=== PATIENT | female | born 1995 | race Caucasian/White ===

== ENCOUNTER → 2017-06-18 | Outpatient (CLI) | payer OTHER ==
[~2017-06-18] MED LIST: AZIT500T2 PO; CEFT250I IM; CEPH-460 PO; DOXY10TA PO; MULTCHW12 PO
== END ==
LOC: HPND 09:49
PROVIDERS: ATTEND Family Medicine
DX: O26.842 Uterine size-date discrepancy, second trimester (principal); Z3A.16 16 weeks gestation of pregnancy
CPT/HCPCS: 76805

== ENCOUNTER → 2017-07-16 | Outpatient (CLI) | payer MEDICAID ==
[~2017-07-16] MED LIST changes: -CEPH-460 PO
== END ==
LOC: HPND 09:31
PROVIDERS: ATTEND Family Medicine
DX: O26.842 Uterine size-date discrepancy, second trimester (principal)
CPT/HCPCS: 76816

== ENCOUNTER 2017-07-20 17:41 | Emergency (ER) | payer MEDICAID ==
[~2017-07-20] VITALS: Ht 162.6 cm; Wt 58.4 kg
[~2017-07-20 17:41] MED LIST changes: -AZIT500T2 PO; -DOXY10TA PO
[2017-07-20 17:42] VITALS: BP 102/63; PULSE 72; RESP 20; TEMP 97.3; O2SAT 98
[2017-07-20 19:03] VITALS: BP 115/64; PULSE 90; RESP 17; O2SAT 100
[2017-07-20] MEDS: LACTATED RINGER'S 1000 ML INJ 1,000 ML IV SCH ×2 (20:06→21:07)
[2017-07-20] MEDS ORDERED: ONDANSETRON HCL 4 MG/2 ML VIAL IV ONE (20:15)
--- NOTE | 2017-07-20 20:48 | PD ---
HPI Chief Complaint AMS Date Seen: Jul 20, 2017 Travel History International Travel<30 Days: No Contact w/Intl Traveler<30Days: No Known Affected Area: No History of Present Illness HPI Patient is a 21-year-old at 21/0 weeks gestation based on ultrasound performed on 07/16/17 with COLE of 11/30/17 that presented to the [facility] with a chief complaint of abdominal pain. Patient was acutely altered when she presented and was unable to answer most questions. She could not mention her last name and was not oriented to person, place, or time. We were only able to deduce from her that she had diffuse abdominal pain and a splitting headache. Patient's boyfriend and grandmother mentioned that she started feeling unwell on Thursday 07/19 but went to work on Saturday and was sent home. She vomited multiple times at home and was vomiting in the OB ED at the time of exam. Notably, she is a patient of Dr. Colt Hdez at the [facility]. Her last OB clinic visit was on 05/31/17. She was recently treated for STIs. History Past Medical History Medical History: Unable to Obtain Past Surgical History Surgical History: Unable to Obtain Family History Narrative Family History Mom has a history of Grave's disease Social History Narrative Social History Patient unable to provide social history. However, grandparents who later came to bedside stated that she has a history of drug abuse. She currently lives with a roommate and has a boyfriend who is her unborn child's father that stays with her from time to time. The boyfriend brought her to the ED but stepped out for a short amount of time. When he returned, he denied any substance use during the . Patient works at [employer] destination [employer]. Allergies-Medications (Allergen,Severity, Reaction): Coded Allergies: latex (Unverified Allergy, Severe, Anaphylaxis, 07/20/17) codeine (Unverified Adverse Reaction, Severe, Nausea/Vomiting, 07/20/17) Home Meds Reported Medications Multiple Vitamins W/ Minerals (Multi-Vitamin Gummies) Gummies Chw, 1 CHEW PO DAILY, CHW 12/28/13 Review of Systems ROS Limitations: Altered Mental Status HENT: Headaches Gastrointestinal: Nausea, Vomiting, Abdominal Pain Physical Exam Vital Signs Date Time Temp Pulse Resp B/P (MAP) Pulse Ox O2 Delivery O2 Flow Rate FiO2 07/20/17 19:03 90 17 115/64 (81) 100 Room Air 07/20/17 17:42 97.3 72 20 102/63 (76) 98 Room Air Narrative GENERAL: Well-nourished, well-developed patient. SKIN: Warm and dry. HEAD: Normocephalic and atraumatic. EYES: No scleral icterus. No injection or drainage. ENT: No nasal drainage noted. Mucous membranes pink. Airway patent. NECK: Supple, trachea midline. No JVD. CARDIOVASCULAR: Bradycardic rate and rhythm without murmurs, gallops, or rubs. RESPIRATORY: Breath sounds equal bilaterally. No accessory muscle use. BREASTS: Bilateral exam showed no masses, no retractions, no nipple discharge. ABDOMEN/GI: Abdomen soft, non-tender, bowel sounds present, no rebound, no guarding Gravid to 21 weeks size FHT's: 140s by Doppler EXTREMITIES: No cyanosis or edema. BACK: Nontender without obvious deformity. No CVA tenderness. NEUROLOGICAL: Awake, disoriented. Motor and sensory grossly within normal limits. Five out of 5 muscle strength in all muscle groups. Normal speech. Data Data Vital Signs Reviewed: Yes Orders Orders Vital Signs (Adult) .ON ADMISSION (07/20/17 20:06) ^ Labor Status (07/20/17 20:06) Urinalysis - C+S If Indicated (07/20/17 20:06) Cbc No Diff, Includes Plts (07/20/17 20:06) Comprehensive Metabolic Panel (07/20/17 20:06) Lactated Ringer's 1000 Ml Inj (Lr 1000 M (07/20/17 20:06) Ondansetron Inj (Zofran Inj) (07/20/17 20:15) Ob/Psych Drug Screen, Urine (07/20/17 20:06) Amylase (07/20/17 20:06) Lipase (07/20/17 20:06) Bedside Glucose ONEIDA.CSUGAR (07/20/17 20:42) Electrocardiogram (07/20/17 ) Labs Laboratory Tests Test 07/20/17 20:00 [facility] Medical Record Reviewed: Yes Interpretation(s) 21-year-old at 21/0 weeks gestation presents in acute altered mental status. Differential diagnoses includes acute encephalopathy, drug overdose, intoxication, acute infection, etc. Plan -Speculum exam was performed by OB hospitalist Dr. Marte which was normal and SVE revealed a closed, thick, and high posterior cervix -CBC, CMP, amylase/lipase, RPR, UA and UDS were ordered Results -UA was negative for infection -UDS was positive for marijuana which may explain the vomiting -CMP revealed potassium of 2.7 -Due to her diminished potassium, an EKG was performed stat and revealed normal sinus rhythm with rate of 70, no ST changes suggestive of ACS After administration of IV Zofran, the patient stopped vomiting and was transferred to the [facility] ED for evaluation of headache She was administered 80 meq of potassium chloride IV and serial potassium levels were 3.6 and 3.9 respectively. The ED physician administered a cocktail for headache which resolved her symptoms. With resolution of the vomiting and headache, she was considered stable enough to be discharged home. Diagnosis Diagnosis: Primary Impression: Altered mental status Additional Impressions: Vomiting Head ache Condition: Stable Eko,Lorena Burger MD R2 Jul 20, 2017 20:48
[2017-07-20 20:49] LABS: HEMATOCRIT 34.9 % (35.0-46.0); MEAN CELL VOLUME 90.4 FL (80.0-100.0); MEAN CORPUSCULAR HEMOGLOBIN 31.3 PG (27.0-34.0); MEAN CORPUSCULAR HGB CONC 34.6 % (32.0-36.0); PLATELET COUNT 249 TH/MM3 (150-450); RED BLOOD COUNT 3.85 MIL/MM3 (4.00-5.30); RED CELL DISTRIBUTION WIDTH 12.9 % (11.6-17.2); REVIEW FLAG FINAL; WHITE BLOOD COUNT 15.3 TH/MM3 (4.0-11.0)
[2017-07-20 20:57] LABS: BLOOD, URINE NEG (NEG); COMMENT (UR) CULT NOT INDICATED; CULTURE IF INDICATED CULT NOT INDICATED; GLUCOSE,URINE NEG (NEG); KETONE, URINE 40 mg/dL (NEG); MUCUS URINE FEW /lpf (OCC); NITRITE,URINE NEG (NEG); PH, URINE 7.5 (5.0-8.5); URINE COLOR LIGHT-YELLOW (YELLW/STRAW)
--- NOTE | 2017-07-20 21:03 | PD ---
History of Present Illness History of Present Illness OB Hg attending The patient was reporting abdominal pain and was writhing around in the bed. She was refusing to answer any questions. While awaiting the arrival of the resident team her previous ultrasound from 07/16/17 was reviewed with cervical length of 4.9 cm and COLE 11/30/17 consistent with 21 weeks and 0 days today. A speculum exam was performed with the patient's permission and revealed cervix that appeared to be visually closed, grossly normal rugae, physiologic discharge , and no cervical or vaginal masses. SVE was performed with cervix closed/thick /high and posterior anterior/firm. Basic lab work ordered with a CBC CMP amylase/lipase, UA, UDS. Yaneth Marte MD Jul 20, 2017 21:03
[2017-07-20 21:18] LABS: ALKALINE PHOSPHATASE 60 U/L (45-117); ALT (GPT) 29 U/L (10-53); AMYLASE 37 U/L (25-115); ANION GAP 14 MEQ/L (5-15); AST (GOT) 18 U/L (15-37); BICARBONATE 17.9 MEQ/L (21.0-32.0); BLOOD UREA NITROGEN 6 MG/DL (7-18); CHLORIDE 103 MEQ/L (98-107); GLOMERULAR FILTRATION RATE 147 ML/MIN (>89); SODIUM (NA) 135 MEQ/L (136-145); TOTAL BILIRUBIN ADULT 0.2 MG/DL (0.2-1.0)
[2017-07-20 21:21] LABS: POTASSIUM 2.7 MEQ/L (3.5-5.1)
[2017-07-20] MEDS ORDERED: POTASSIUM CHLOR 20 MEQ PREMIX 100 ML IV PRN (21:30)
[2017-07-20] MEDS ORDERED: SODIUM CHLOR 0.9% 1000 ML INJ 1,000 ML IV ONE (22:07)
[2017-07-20] MEDS ORDERED: PROCHLORPERAZINE INJ 10 MG/2 ML VIAL IVP ONE (22:15)
[2017-07-20] MEDS ORDERED: diphenhydrAMINE HCL 50 MG/ML VIAL IVP ONE (22:15)
[2017-07-20] MEDS ORDERED: KETOROLAC TROMETHAMINE 30 MG/ML (IVP) VIAL IVP ONE (22:15)
[2017-07-20] MEDS ORDERED: MORPHINE SULFATE 4 MG/ML INJ IV PUSH ONE (22:15)
[2017-07-20] MEDS ORDERED: SODIUM CHLORIDE 0.9% FLUSH 10 ML FLUSH IVF PRN (22:15)
--- NOTE | 2017-07-20 22:17 | PD ---
HPI Chief Complaint: JOSEPH Related Problem Time Seen by Provider: 18:56 Travel History International Travel<30 days: No Contact w/Intl Traveler<30days: No Traveled to known affect area: No History of Present Illness HPI The patient is a 21-year-old female who is approximately 21 weeks and presents to the hospital for headache, nausea, vomiting, and abdominal pain. The patient was seen in the OB ED by the on-call ride attendant where she underwent examination, heart rate was within normal limits and there is no evidence of bleeding. The patient was administered IV fluids and Zofran which did resolve the nausea. The patient was then brought back to the emergency department for her headache. 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 The headache is still located on the left aspect of her head, throbbing, nonradiating, and she contributes the headache to dehydration. She denies any history of migraines, subarachnoid hemorrhage, or trauma to left aspect of the head. The patient denies any acute posterior neck pain. She denies any focal deficits of the upper or lower extremity is. She denies any fever, chills, or sweats. [facility] Past Medical History Medical History: Denies Significant Hx ?: Past Surgical History Surgical History: No Previous Surgery Social History Alcohol Use: No Tobacco Use: No Substance Use: No Allergies-Medications (Allergen,Severity, Reaction): Coded Allergies: latex (Unverified Allergy, Severe, Anaphylaxis, 07/20/17) codeine (Unverified Adverse Reaction, Severe, Nausea/Vomiting, 07/20/17) Reported Meds & Prescriptions Reported Meds & Active Scripts Active Reported Multi-Vitamin Gummies (Amino Acids/Minerals/Vitamins) Gummies Chw 1 Chew PO DAILY Review of Systems Except as stated in HPI: all other systems reviewed are Neg General / Constitutional: No: Fever, Chills Eyes: Positive: Photophobia, Visual changes HENT: Positive: Headaches, Lightheadedness, No: Neck Pain Cardiovascular: No: Chest Pain or Discomfort Respiratory: No: Shortness of Breath Gastrointestinal: Positive: Nausea, Vomiting, Abdominal Pain Genitourinary: No: Vaginal Bleeding Neurologic: Positive: Dizziness, Headache, No: Change in Mentation, Paresthesia , Sensory Disturbance Physical Exam Narrative GENERAL: Awake, alert, pleasant 21-year-old female who appears her stated age and is in no acute respiratory distress. SKIN: Focused skin assessment warm/dry. HEAD: Atraumatic. Normocephalic. EYES: Pupils equal and round. Pupils are 3 mm bilateral and reactive. EOMs are intact. The patient does not note any pain upon extraocular movement. She is able to see fingers at a distance of 2 feet without difficulty. ENT: No nasal bleeding or discharge. Mucous membranes pink and moist. TMs are translucent and EACs are clear. NECK: Trachea midline. No JVD. No meningeal signs noted. CARDIOVASCULAR: Regular rate and rhythm. No murmur appreciated. RESPIRATORY: No accessory muscle use. Clear to auscultation. Breath sounds equal bilaterally. GASTROINTESTINAL: Abdomen soft, gravid, no rebound tenderness. MUSCULOSKELETAL: No obvious deformities. No clubbing. No cyanosis. No edema. NEUROLOGICAL: Awake and alert. No obvious cranial nerve deficits. Motor grossly within normal limits. Normal speech. PSYCHIATRIC: Appropriate mood and affect; insight and judgment normal. Data Data Last Documented VS Vital Signs Date Time Temp Pulse Resp B/P (MAP) Pulse Ox O2 Delivery O2 Flow Rate FiO2 07/20/17 23:30 96 Room Air 07/20/17 19:03 90 17 07/20/17 17:42 97.3 Orders Orders Vital Signs (Adult) .ON ADMISSION (07/20/17 20:06) ^ Labor Status (07/20/17 20:06) Urinalysis - C+S If Indicated (07/20/17 20:06) Cbc No Diff, Includes Plts (07/20/17 20:06) Comprehensive Metabolic Panel (07/20/17 20:06) Lactated Ringer's 1000 Ml Inj (Lr 1000 M (07/20/17 20:06) Ondansetron Inj (Zofran Inj) (07/20/17 20:15) Ob/Psych Drug Screen, Urine (07/20/17 20:06) Amylase (07/20/17 20:06) Lipase (07/20/17 20:06) Bedside Glucose ONEIDA.CSUGAR (07/20/17 20:42) Electrocardiogram (07/20/17 ) Ur Bath Salts (07/20/17 20:00) Ur Heroin (07/20/17 20:00) Ur K2 Spice (07/20/17 20:00) Ur Ecstasy (07/20/17 20:00) Phencyclidine Urine (Pcp) (07/20/17 20:00) Potassium Chlor 20 Meq Premix (Kcl 20 Me (07/20/17 21:30) Rapid Plasmin Reagin Screen (07/20/17 21:34) Ecg Monitoring (07/20/17 22:07) Iv Access Insert/Monitor (07/20/17 22:07) Oximetry (07/20/17 22:07) Sodium Chloride 0.9% Flush (Ns Flush) (07/20/17 22:15) Ketorolac Inj (Toradol Inj) (07/20/17 22:15) Prochlorperazine Inj (Compazine Inj) (07/20/17 22:15) Diphenhydramine Inj (Benadryl Inj) (07/20/17 22:15) Sodium Chlor 0.9% 1000 Ml Inj (Ns 1000 M (07/20/17 22:07) Morphine Inj (Morphine Inj) (07/20/17 22:15) Potassium Chloride Inj (Kcl Inj) (07/20/17 23:00) Potassium, Serum (K) (07/21/17 01:00) Potassium, Serum (K) (07/21/17 03:00) Potassium, Serum (K) (07/21/17 05:00) Labs Laboratory Tests Test 07/20/17 20:00 White Blood Count 15.3 TH/MM3 Red Blood Count 3.85 MIL/MM3 Hemoglobin 12.1 GM/DL Hematocrit 34.9 % Mean Corpuscular Volume 90.4 FL Mean Corpuscular Hemoglobin 31.3 PG Mean Corpuscular Hemoglobin Concent 34.6 % Red Cell Distribution Width 12.9 % Platelet Count 249 TH/MM3 Mean Platelet Volume 8.3 FL Urine Color LIGHT-YELLOW Urine Turbidity HAZY Urine pH 7.5 Urine Specific [place] 1.011 Urine Protein NEG mg/dL Urine Glucose (UA) NEG mg/dL Urine Ketones 40 mg/dL Urine Occult Blood NEG Urine Nitrite NEG Urine Bilirubin NEG Urine Urobilinogen LESS THAN 2.0 MG/DL Urine Leukocyte Esterase NEG Urine RBC 1 /hpf Urine WBC 2 /hpf Urine Amorphous Sediment FEW Urine Mucus FEW /lpf Microscopic Urinalysis Comment CULT NOT INDICATED Blood Urea Nitrogen 6 MG/DL Creatinine 0.52 MG/DL Random Glucose 94 MG/DL Total Protein 7.6 GM/DL Albumin 3.5 GM/DL Calcium Level 8.9 MG/DL Alkaline Phosphatase 60 U/L Aspartate Amino Transf (AST/SGOT) 18 U/L Alanine Aminotransferase (ALT/SGPT) 29 U/L Total Bilirubin 0.2 MG/DL Sodium Level 135 MEQ/L Potassium Level 2.7 MEQ/L Chloride Level 103 MEQ/L Carbon Dioxide Level 17.9 MEQ/L Anion Gap 14 MEQ/L Estimat Glomerular Filtration Rate 147 ML/MIN Amylase Level 37 U/L Lipase 62 U/L Urine Opiates Screen NEG Urine Barbiturates Screen NEG Urine Amphetamines Screen NEG Urine Benzodiazepines Screen NEG Urine Cocaine Screen NEG Urine Cannabinoids Screen POS MDM Medical Decision Making Medical Screen Exam Complete: Yes Emergency Medical Condition: Yes Medical Record Reviewed: Yes Interpretation(s) Laboratory Tests Test 07/20/17 20:00 White Blood Count 15.3 TH/MM3 Red Blood Count 3.85 MIL/MM3 Hemoglobin 12.1 GM/DL Hematocrit 34.9 % Mean Corpuscular Volume 90.4 FL Mean Corpuscular Hemoglobin 31.3 PG Mean Corpuscular Hemoglobin Concent 34.6 % Red Cell Distribution Width 12.9 % Platelet Count 249 TH/MM3 Mean Platelet Volume 8.3 FL Urine Color LIGHT-YELLOW Urine Turbidity HAZY Urine pH 7.5 Urine Specific [place] 1.011 Urine Protein NEG mg/dL Urine Glucose (UA) NEG mg/dL Urine Ketones 40 mg/dL Urine Occult Blood NEG Urine Nitrite NEG Urine Bilirubin NEG Urine Urobilinogen LESS THAN 2.0 MG/DL Urine Leukocyte Esterase NEG Urine RBC 1 /hpf Urine WBC 2 /hpf Urine Amorphous Sediment FEW Urine Mucus FEW /lpf Microscopic Urinalysis Comment CULT NOT INDICATED Blood Urea Nitrogen 6 MG/DL Creatinine 0.52 MG/DL Random Glucose 94 MG/DL Total Protein 7.6 GM/DL Albumin 3.5 GM/DL Calcium Level 8.9 MG/DL Alkaline Phosphatase 60 U/L Aspartate Amino Transf (AST/SGOT) 18 U/L Alanine Aminotransferase (ALT/SGPT) 29 U/L Total Bilirubin 0.2 MG/DL Sodium Level 135 MEQ/L Potassium Level 2.7 MEQ/L Chloride Level 103 MEQ/L Carbon Dioxide Level 17.9 MEQ/L Anion Gap 14 MEQ/L Estimat Glomerular Filtration Rate 147 ML/MIN Amylase Level 37 U/L Lipase 62 U/L Urine Opiates Screen NEG Urine Barbiturates Screen NEG Urine Amphetamines Screen NEG Urine Benzodiazepines Screen NEG Urine Cocaine Screen NEG Urine Cannabinoids Screen POS Differential Diagnosis Differential diagnosis includes ocular migraine, migraine, tension headache, cluster headache, cavernous sinus stenosis, subarachnoid hemorrhage, dehydration , cluster headache, glaucoma. Narrative Course The patient was initially evaluated in the OB ED, was noted to have normal heart tones and normal pelvic examination. The patient was administered IV fluids and Zofran which resolved her nausea. In the emergency department the patient does note a headache on the left side with some photophobia or vision changes which have currently resolved. She has no meningeal signs or fever to suggest meningitis. No extraocular movement pain to suggest cavernous sinus thrombosis. I had a discussion with the patient regarding category C medications for headache including Compazine, morphine, Toradol, and Benadryl. The patient is agreeable and was provided pain medications with IV fluids. The patient was then monitored in the emergency department. The patient is nonfocal exam with no meningeal signs of the neck, I highly doubt subarachnoid hemorrhage. The patient was reevaluated at 11:10 PM, she was sleeping comfortably. The patient was awakened, she states her headache has significantly improved. The patient is a patient of the residents, therefore, the residents were paged at 11 :13 PM. I had a discussion with the residents, Dr. Aguilar, who ordered IV potassium supplementation and reevaluation of potassium. Potassium response after IV potassium was administered the patient will be discharged home. Diagnosis Primary Impression: Cephalgia Qualified Codes: R51 - Headache Additional Impression: Hypokalemia Patient Instructions: General Instructions, Labor (ED), Abdominal Pain in (ED) Departure Forms: Tests/Procedures Additional Instructions: RETURN FOR CONTRACTIONS, LOSS OF FLUID (WATER BREAKING), VAGINAL BLEEDING, OR DECREASED MOVEMENT DRINK 8-10 LARGE GLASSES OF WATER EVERY DAY KEEP SCHEDULED APPOINTMENT WITH YOUR PROVIDER Condition: Stable Filipe Lane MD Jul 20, 2017 22:17
[2017-07-20] MEDS ORDERED: SODIUM CHLORID 0.9% IV ONE (23:00)
[2017-07-20] MEDS ORDERED: POTASSIUM CHLORIDE IV ONE (23:00)
[2017-07-20 23:30] VITALS: O2SAT 96
[2017-07-21 05:46] VITALS: BP 115/68; PULSE 89; RESP 18; O2SAT 100
--- NOTE | 2017-07-21 13:47 | EKG ---
Date Performed: 07/20/2017 Time Performed: 21:33:48 PTAGE: 21 years EKG: Sinus rhythm POSSIBLE RIGHT VENTRICULAR CONDUCTION DELAY BORDERLINE ECG NO PREVIOUS TRACING DOCTOR: Fuentes Osorio Interpretating Date/Time 07/21/2017 13:46:42
[2017-07-24] MEDS ORDERED: DOXY10TA PO (15:43)
[2017-07-25 10:17] LABS: BATH SALTS (MDPV) UR NEG (NEG); ECSTASY (MDMA) UR NEG (NEG); GABAPENTIN UR NEG (NEG); HEROIN (6-ACETYLMORPHINE) UR NEG (NEG); HYDROMORPHONE U NEG (NEG); K2 SPICE UR NEG (NEG); OBMETHADONE UR NEG (NEG); PHENCYCLIDINE URINE NEG (NEG)
[2017-08-01] MEDS ORDERED: AZIT500T2 PO (09:01)
== END 2017-07-21 06:18 | disposition home or self-care (01) ==
LOC: HOBED 17:41 → NEPE 07-21 06:18
DX: O26.892 Other specified pregnancy related conditions, second trimester (principal); R41.82 Altered mental status, unspecified; R11.10 Vomiting, unspecified; R51 Headache; E87.6 Hypokalemia; R10.84 Generalized abdominal pain; R94.31 Abnormal electrocardiogram [ECG] [EKG]; Z3A.21 21 weeks gestation of pregnancy
CPT/HCPCS: 80053; 80307; 81001; 82150; 82948; 83690; 84132; 85027; 86592; 93005; 96361; 96365; 96375; 99284; G0481; J0780; J1200; J1885; J2270; J2405; J3480; J7030; J7040; J7120

== ENCOUNTER 2017-11-13 16:01 | Emergency (ER) | payer MEDICAID ==
[~2017-11-13 16:01] MED LIST changes: +FLU60SYR17 IM; -MULTCHW12 PO; +PREN29TA PO
--- NOTE | 2017-11-13 16:55 | PD ---
HPI Chief Complaint abdominal pain Date Seen: Nov 13, 2017 Travel History International Travel<30 Days: No Contact w/Intl Traveler<30Days: No Known Affected Area: No History of Present Illness HPI Ms. Escobedo is a 22 yo G1 [address] of [address]. Hdez at 37 4/7 weeks who presents to OB ED with complaint of abdominal pain. Patient states that this started this afternoon and is predominately in her upper abdomen. Patient does not report any decreased movement, vaginal bleeding, or concern for loss of fluid. Patient does not report any chest pain, shortness of breath, abnormal bowel movements, dizziness, fever/chills, headache, or vision changes. Patient reports chronic nausea and vomiting during ; she has tried antiemetic and Tums without success. records reviewed; patient had a normal lab profile. GBS negative 2nd trimester US without pathology; posterior placenta w/o previa During exam- contractions/uterine irritability on CTG coincided with patient's abdominal pain Weeks Gestation: 37 : 1 History Past Medical History Medical History: Denies Significant Hx Obstetric History Obstetric History G1 Past Surgical History Surgical History: No Previous Surgery Family History Narrative Family History Graves RA Lupus Social History Alcohol Use: No Tobacco Use: No Substance Abuse: Yes (marijuana early in ; has since stopped) Allergies-Medications (Allergen,Severity, Reaction): Coded Allergies: latex (Verified Allergy, Severe, Anaphylaxis, 11/13/17) codeine (Verified Adverse Reaction, Severe, Nausea/Vomiting, 11/13/17) Home Meds Active Scripts Vit-Iron Carbonyl ( Plus Iron 29-1 mg) 29 Mg Iron-1 Mg Tab, 1 TAB PO DAILY for Nutritional Supplement, #30 TAB 0 Refills Prov:Albert Hdez MD, R3 11/08/17 Flu Vaccine Quad (36Mos Up) Inj (Fluzone Quad [id number] Inj) 60 Mcg (15 Mcg X 4) /0.5 Ml Syringe, 0.5 ML IM .ONCE for Immunization, #1 SYRINGE 0 Refills Prov:Albert Hdez MD, R3 09/26/17 Physical Exam BP 115/69 HR 73 RR 18 T 98 Narrative GENERAL: Well-nourished, well-developed patient. SKIN: Warm and dry. HEAD: Normocephalic and atraumatic. EYES: No scleral icterus. No injection or drainage. CARDIOVASCULAR: Regular rate and rhythm without murmurs. Normal perfusion RESPIRATORY: CTAB; normal rate ABDOMEN/GI: Abdomen soft, non-tender, bowel sounds present, no rebound, no guarding Gravid EXTREMITIES: No cyanosis or edema. BACK: Nontender without obvious deformity. No CVA tenderness. NEUROLOGICAL: Awake and alert. Motor and sensory function grossly within normal limits GENITOURINARY: External Genitalia: intact and normal in appearance Cervix: Dilatation: 1- 2cm Effacement: ~20% Station: -3 Presentation: V Membranes: Intact Uterine Contractions: Irregular/ irritability FHT's: Category: 1 Baseline: 120 Reactive: Y Variability: Mod Decels: None MDM Medical Record Reviewed: Yes Narrative Course / MDM Ms. Escobedo is a 22 yo G[address] Hdez at 37 4/7 weeks who presents to OB ED with complaint of abdominal pain. -Normal VS -Cat 1 rhythm -Cervix 2cm dilated (unchanged from prior exam w/ PCP) -Uterine irritability/occasional contractions on CTG which coincided with pain Plan: -Discussed with patient that her pain coincides well with contractions. Due to reassuring rhythm and lack of regular contractions, patient deemed safe for discharge home, rest and hydration, and follow-up with PCP on Saturday. Patient agrees to return to OB ED with any worsening pain with contractions, regular contractions, concern for her gestation, or any new symptoms Diagnosis Diagnosis: Primary Impression: Uterine contractions during Additional Impression: 37 weeks gestation of Disposition: 01 DISCHARGE HOME Condition: Stable Referrals: Albert Hdez MD, R3 3 days Patient Instructions: Abdominal Pain in (ED), Movement (ED), General Instructions, Early Labor Signs (ED) Hunter Sorensen MD, R3 Nov 13, 2017 16:55
== END 2017-11-13 17:26 | disposition home or self-care (01) ==
LOC: HOBED 16:01
DX: O47.1 False labor at or after 37 completed weeks of gestation (principal); O26.893 Other specified pregnancy related conditions, third trimester; R10.9 Unspecified abdominal pain; O21.9 Vomiting of pregnancy, unspecified; Z88.5 Allergy status to narcotic agent; Z3A.37 37 weeks gestation of pregnancy
CPT/HCPCS: 59025

== ENCOUNTER 2017-11-21 17:00 | Emergency (ER) | payer MEDICAID ==
[~2017-11-21] VITALS: Ht 162.6 cm; Wt 64.0 kg
--- NOTE | 2017-11-21 17:55 | PD ---
HPI Chief Complaint Bleeding and abdominal pain Date Seen: Nov 21, 2017 Time Seen: 18:00 Travel History International Travel<30 Days: No Contact w/Intl Traveler<30Days: No Known Affected Area: No History of Present Illness HPI Patient is a 22-year-old at 38 weeks and 5 days who presents to OB triage complaining of irregular contractions with loss of mucous plug. Patient reports contractions every 15-20 minutes. She describes contractions as a tightening around her abdomen. She is also experiencing "hunger pain" and pinching/sharp pain in her vaginal area. Patient reports stringy clear discharge with streaks of blood for the past 2 days. She denies vaginal bleeding and gush of fluid. Patient reports positive movement. She also reports loose stool 2 days. Weeks Gestation: 38 Para: 0 : 1 History Past Medical History Narrative Medical History of anemia in childhood Obstetric History Obstetric History G1 - current , no complications with the exception for hypokalemia -> corrected Past Surgical History Surgical History: No Previous Surgery Family History Family History: Negative Social History Alcohol Use: No Tobacco Use: No (Previous one pack per day smoker, but has stopped since knowing being . ) Substance Abuse: Yes (marijuana use for nausea; last use 1 week ago) Allergies-Medications (Allergen,Severity, Reaction): Coded Allergies: latex (Verified Allergy, Severe, Anaphylaxis, 11/13/17) codeine (Verified Adverse Reaction, Severe, Nausea/Vomiting, 11/13/17) Home Meds Active Scripts Vit-Iron Carbonyl ( Plus Iron 29-1 mg) 29 Mg Iron-1 Mg Tab, 1 TAB PO DAILY for Nutritional Supplement, #30 TAB 0 Refills Prov:Albert Hdez MD, R3 11/08/17 Discontinued Scripts Flu Vaccine Quad (36Mos Up) Inj (Fluzone Quad [id number] Inj) 60 Mcg (15 Mcg X 4) /0.5 Ml Syringe, 0.5 ML IM .ONCE for Immunization, #1 SYRINGE 0 Refills Prov:Albert Hdez MD, R3 09/26/17 Review of Systems Except as stated in HPI: all other systems reviewed are Neg Physical Exam Narrative GENERAL: Well-nourished, well-developed patient. SKIN: Warm and dry. HEAD: Normocephalic and atraumatic. EYES: No scleral icterus. No injection or drainage. ENT: No nasal drainage noted. Mucous membranes pink. Airway patent. NECK: Supple, trachea midline. No JVD. CARDIOVASCULAR: Regular rate and rhythm without murmurs, gallops, or rubs. RESPIRATORY: Breath sounds equal bilaterally. No accessory muscle use. ABDOMEN/GI: Abdomen soft, non-tender, bowel sounds present, no rebound, no guarding Gravid to 38 weeks size GENITOURINARY: External Genitalia: Intact and normal in appearance Dilatation: 2 cm Effacement: 70% Station: -2 Presentation: Vertex Membranes: Intact Uterine Contractions: q10min FHT's: Category: 1 Baseline: 135 Reactive: + Variability: Moderate Decels: None EXTREMITIES: No cyanosis or edema. BACK: Nontender without obvious deformity. No CVA tenderness. NEUROLOGICAL: Awake and alert. Motor and sensory grossly within normal limits. Five out of 5 muscle strength in all muscle groups. Normal speech. Data Data Vital Signs Reviewed: Yes Group B Strep: Negative MDM Plan Patient is a 22-year-old at 38 weeks and 5 days who presents to OB triage complaining of irregular contractions with loss of mucous plug. * IUP - Category 1 tracing - see PE. * Tylenol for pain control. * Encourage hydration. * Discharge home. Diagnosis Diagnosis: Primary Impression: Irregular contractions Disposition: DISCHARGE HOME Condition: Stable Erikl,Neeta BELL R1 Nov 21, 2017 17:55
[2017-11-27] MEDS ORDERED: BACT800T5 PO (08:19)
== END 2017-11-21 18:35 | disposition home or self-care (01) ==
LOC: HOBED 17:00
DX: O26.893 Other specified pregnancy related conditions, third trimester (principal); Z3A.38 38 weeks gestation of pregnancy; Z87.891 Personal history of nicotine dependence; Z88.5 Allergy status to narcotic agent; Z91.040 Latex allergy status
CPT/HCPCS: 99284

== ENCOUNTER 2017-11-22 03:08 | Inpatient (IN) | payer MEDICAID ==
[2017-11-22] VITALS (52 sets, daily range): BP systolic 99–137; BP diastolic 55–93; PULSE 65–104; RESP 16–20; TEMP 97.8–98.7; O2SAT 98–100
[~2017-11-22 03:08] MED LIST changes: -FLU60SYR17 IM
--- NOTE | 2017-11-22 04:03 | PD ---
HPI Chief Complaint Abdominal pain Date Seen: Nov 22, 2017 Travel History International Travel<30 Days: No Contact w/Intl Traveler<30Days: No Known Affected Area: No History of Present Illness HPI Patient is a 22-year-old at 38/6 weeks gestation that presents to OB triage with her mom complaining of painful contractions that are occurring every 3-5 minutes. She was here earlier when her contractions were irregular and occurring every 15-20 minutes. She was found to not be in active labor and was sent home. She denies vaginal bleeding and gush of fluid and reports positive movement. care is with Dr. Albert Hdez at the [facility]. Weeks Gestation: 38 Para: 0 : 1 History Past Medical History Medical History: Denies Significant Hx Obstetric History Obstetric History - hypokalemia during that was corrected Past Surgical History Surgical History: No Previous Surgery Family History Family History: Negative Social History Alcohol Use: No Tobacco Use: No (None during this ) Substance Abuse: No (occasional marijuana use ) Allergies-Medications (Allergen,Severity, Reaction): Coded Allergies: latex (Verified Allergy, Severe, Anaphylaxis, 11/13/17) codeine (Verified Adverse Reaction, Severe, Nausea/Vomiting, 11/13/17) Home Meds Active Scripts Vit-Iron Carbonyl ( Plus Iron 29-1 mg) 29 Mg Iron-1 Mg Tab, 1 TAB PO DAILY for Nutritional Supplement, #30 TAB 0 Refills Prov:Albert Hdez MD, R3 11/08/17 Discontinued Scripts Flu Vaccine Quad (36Mos Up) Inj (Fluzone Quad [id number] Inj) 60 Mcg (15 Mcg X 4) /0.5 Ml Syringe, 0.5 ML IM .ONCE for Immunization, #1 SYRINGE 0 Refills Prov:Albert Hdez MD, R3 09/26/17 Review of Systems Except as stated in HPI: all other systems reviewed are Neg Physical Exam Narrative GENERAL: Well-nourished, well-developed patient, appears uncomfortable SKIN: Warm and dry. HEAD: Normocephalic and atraumatic. EYES: No scleral icterus. No injection or drainage. ENT: No nasal drainage noted. Mucous membranes pink. Airway patent. NECK: Supple, trachea midline. No JVD. CARDIOVASCULAR: Regular rate and rhythm without murmurs, gallops, or rubs. RESPIRATORY: Breath sounds equal bilaterally. No accessory muscle use. ABDOMEN/GI: Abdomen soft, non-tender, bowel sounds present, no rebound, no guarding Gravid to 39 weeks size GENITOURINARY: External Genitalia: intact and normal in appearance Dilatation: 2-3 cm Effacement: 80% Station: -2 Presentation: Vertex Membranes: intact Uterine Contractions: present q 1-2 mins FHT's: Category: I Baseline: 130 Reactive: accels present Variability: Moderate Decels: None EXTREMITIES: No cyanosis or edema. BACK: Nontender without obvious deformity. No CVA tenderness. NEUROLOGICAL: Awake and alert. Motor and sensory grossly within normal limits. Five out of 5 muscle strength in all muscle groups. Normal speech. Data Data Group B Strep: Negative MDM Medical Record Reviewed: Yes Interpretation(s) 22 at 38/6 weeks gestation in early labor Narrative Course / MDM -Early labor stage with active contractions, vaginal exam: 2-3/80%/-2 -Patient was monitored for 1 hour, and then rechecked for cervical change, and was found to be 3 cm -After 1 hour, pt was discussed with OB hospitalist who gave order for patient to walk for 1 hour and then recheck cervix -After walking for one hour, patient spontaneously ruptured, Amnisure was positive, she made cervical change to 5 cm Plan Intrauterine -FHTs reassuring -Vaginal exam 5cm/90%/-1 -Contractions frequent and painful, now in active labor -Plan to admit to L&D -Patient desires epidural -Routine antepartum care -Expect vaginal delivery Diagnosis Diagnosis: Primary Impression: Rupture of membranes with clear amniotic fluid Eko,Lorena Burger MD R2 Nov 22, 2017 04:03
[2017-11-22] MEDS: LACTATED RINGER'S 1000 ML INJ 1,000 ML IV SCH ×2 (06:22→14:22)
[2017-11-22] MEDS ORDERED: LACTATED RINGER'S 1000 ML INJ 1,000 ML IV PRN (06:22)
--- NOTE | 2017-11-22 06:22 | HHI.HP ---
History & Physical H&P HPI Chief Complaint Abdominal pain Date Seen: Nov 22, 2017 Travel History International Travel<30 Days: No Contact w/Intl Traveler<30Days: No Known Affected Area: No History of Present Illness HPI Patient is a 22-year-old at 38/6 weeks gestation that presents to OB triage with her mom complaining of painful contractions that are occurring every 3-5 minutes. She was here earlier when her contractions were irregular and occurring every 15-20 minutes. She was found to not be in active labor and was sent home. She denies vaginal bleeding and gush of fluid and reports positive movement. care is with Dr. Albert Hdez at the [facility]. Weeks Gestation: 38 Para: 0 : 1 History (Limited) History Past Medical History Medical History: Denies Significant Hx Obstetric History Obstetric History - hypokalemia during that was corrected Past Surgical History Surgical History: No Previous Surgery Family History Family History: Negative Social History Alcohol Use: No Tobacco Use: No (None during this ) Substance Abuse: No (occasional marijuana use ) Allergies-Medications Allergies-Medications (Allergen,Severity, Reaction): Coded Allergies: latex (Verified Allergy, Severe, Anaphylaxis, 11/13/17) codeine (Verified Adverse Reaction, Severe, Nausea/Vomiting, 11/13/17) Home Meds Active Scripts Vit-Iron Carbonyl ( Plus Iron 29-1 mg) 29 Mg Iron-1 Mg Tab, 1 TAB PO DAILY for Nutritional Supplement, #30 TAB 0 Refills Prov:Albert Hdez MD, R3 11/08/17 Discontinued Scripts Flu Vaccine Quad (36Mos Up) Inj (Fluzone Quad [id number] Inj) 60 Mcg (15 Mcg X 4) /0.5 Ml Syringe, 0.5 ML IM .ONCE for Immunization, #1 SYRINGE 0 Refills Prov:Albert Hdez MD, R3 09/26/17 ROS Review of Systems Except as stated in HPI: all other systems reviewed are Neg Physical Exam Physical Exam Narrative GENERAL: Well-nourished, well-developed patient, appears uncomfortable SKIN: Warm and dry. HEAD: Normocephalic and atraumatic. EYES: No scleral icterus. No injection or drainage. ENT: No nasal drainage noted. Mucous membranes pink. Airway patent. NECK: Supple, trachea midline. No JVD. CARDIOVASCULAR: Regular rate and rhythm without murmurs, gallops, or rubs. RESPIRATORY: Breath sounds equal bilaterally. No accessory muscle use. ABDOMEN/GI: Abdomen soft, non-tender, bowel sounds present, no rebound, no guarding Gravid to 39 weeks size GENITOURINARY: External Genitalia: intact and normal in appearance Dilatation: 2-3 cm Effacement: 80% Station: -2 Presentation: Vertex Membranes: intact Uterine Contractions: present q 1-2 mins FHT's: Category: I Baseline: 130 Reactive: accels present Variability: Moderate Decels: None EXTREMITIES: No cyanosis or edema. BACK: Nontender without obvious deformity. No CVA tenderness. NEUROLOGICAL: Awake and alert. Motor and sensory grossly within normal limits. Five out of 5 muscle strength in all muscle groups. Normal speech. Data Data Data Group B Strep: Negative MDM MDM Medical Record Reviewed: Yes Interpretation(s) 22 at 38/6 weeks gestation in early labor Narrative Course / MDM -Early labor stage with active contractions, vaginal exam: 2-3/80%/-2 -Patient was monitored for 1 hour, and then rechecked for cervical change, and was found to be 3 cm -After 1 hour, pt was discussed with OB hospitalist who gave order for patient to walk for 1 hour and then recheck cervix -After walking for one hour, patient spontaneously ruptured, Amnisure was positive, she made cervical change to 5 cm Plan Intrauterine -FHTs reassuring -Vaginal exam 5cm/90%/-1 -Contractions frequent and painful, now in active labor -Plan to admit to L&D -Patient desires epidural -Routine antepartum care -Expect vaginal delivery Diagnosis Diagnosis: Primary Impression: Rupture of membranes with clear amniotic fluid (Lorena Barahona MD R2) Lorena Barahona MD R2 Nov 22, 2017 06:22 Pee Davis II, MD Nov 22, 2017 06:30
[2017-11-22] MEDS ORDERED: ONDANSETRON HCL 4 MG/2 ML VIAL IV PUSH PRN (06:30)
[2017-11-22] MEDS ORDERED: SODIUM CHLORID 0.9% 500 ML INJ 500 ML IV PRN (06:30)
[2017-11-22] MEDS ORDERED: MINERAL OIL 10 ML VIAL TOPICAL PRN (06:30)
[2017-11-22] MEDS ORDERED: OXYTOCIN 30 UNITS-500ML PREMIX 500 ML IV ONE (06:30)
[2017-11-22] MEDS ORDERED: CITRIC ACID-SODIUM CITRATE LIQ 30 ML UDC PO SCH (06:30)
[2017-11-22] MEDS ORDERED: LIDOCAINE HCL 1% 50 ML VIAL I-DERMAL PRN (06:30)
[2017-11-22] MEDS ORDERED: LIDOCAINE HCL 1% 50 ML VIAL INFIL PRN (06:30)
[2017-11-22] MEDS ORDERED: SODIUM CHLOR 0.9% 1000 ML INJ 1,000 ML IV PRN (06:42)
[2017-11-22 07:16] LABS: AUTOMATED NEUTROPHIL # 13.2 TH/MM3 (1.8-7.7); BASOPHIL % 0.3 % (0.0-2.0); EOSINOPHIL # 0.1 TH/MM3 (0-0.4); EOSINOPHIL % 0.8 % (0.0-4.0); HEMATOCRIT 32.1 % (35.0-46.0); HEMOGLOBIN 11.1 GM/DL (11.6-15.3); LYMPH % 17.4 % (9.0-44.0); LYMPHOCYTE # 3.1 TH/MM3 (1.0-4.8); MEAN CORPUSCULAR HEMOGLOBIN 30.4 PG (27.0-34.0); MEAN CORPUSCULAR HGB CONC 34.6 % (32.0-36.0); MEAN PLATELET VOLUME 8.7 FL (7.0-11.0); MONO % 8.6 % (0.0-8.0); MONOCYTE # 1.5 TH/MM3 (0-0.9); NEUT % 72.9 % (16.0-70.0); PLATELET COUNT 269 TH/MM3 (150-450); RED BLOOD COUNT 3.65 MIL/MM3 (4.00-5.30); RED CELL DISTRIBUTION WIDTH 13.2 % (11.6-17.2); WHITE BLOOD COUNT 18.1 TH/MM3 (4.0-11.0)
[2017-11-22] MEDS ORDERED: fentaNYL 2MCG-BUPIV 0.125% INJ 100 ML ONE (07:26)
[2017-11-22 07:41] LABS: AMORPHOUS SEDIMENT, URINE FEW; BACTERIA, URINE OCC /hpf; BILIRUBIN, URINE NEG (NEG); BLOOD, URINE NEG (NEG); CALCIUM OXALATE CRYSTALS,URINE FEW /hpf; GLUCOSE,URINE NEG (NEG); KETONE, URINE NEG (NEG); MUCUS URINE FEW /lpf (OCC); NITRITE,URINE NEG (NEG); PH, URINE 6.5 (5.0-8.5); SQUAMOUS EPITHELIAL CELL URINE 7 /hpf (0-5); URINE COLOR YELLOW (YELLW/STRAW); URINE LEUKOCYTE ESTERASE NEG (NEG)
[2017-11-22] MEDS ORDERED: ePHEDrine/NS 25 MG/5 ML SYRINGE IV PUSH PRN (09:00)
[2017-11-22] MEDS ORDERED: fentaNYL 2MCG-BUPIV 0.125% 100 ML EPIDURAL SCH (09:00)
[2017-11-22] MEDS ORDERED: DO NOT ADMINISTER ANTICOAGULANTS PRN (09:00)
[2017-11-22] MEDS ORDERED: NO SYSTEM NARCOTICS PRN (09:00)
--- NOTE | 2017-11-22 12:05 | PD.OB.DELI ---
Weeks gestation: 38 Gest age assessed date: Nov 22, 2017 Anesthesia: Epidural Episiotomy: None Vaginal Delivery: Normal Presentation: Occiput anterior Nuchal Cord: None Delayed cord clamping (45 sec): Yes : Female Delivery date: Nov 22, 2017 Delivery time: 11:23 One Minute : 8 Five Minute : 9 Weight: 3325 Placenta: Spontaneous delivery, Intact, 3 vessel cord Laceration: Vaginal laceration (labial laceration) Repair: Vicryl interrupted, Vicryl running Estimated blood loss: 200cc (Albert Hdez MD, R3) Additional Information Attending note: I was present for entire procedure. (Camila Conn MD) Albert Hdez MD, R3 Nov 22, 2017 12:05 Camila Conn MD Nov 25, 2017 09:20
[2017-11-22] MEDS ORDERED: BENZOCAINE 20% TOPICAL SPRAY 60 ML CAN TOPICAL PRN (12:45)
[2017-11-22] MEDS ORDERED: ACETAMINOPHEN 325 MG TAB PO PRN (12:45)
[2017-11-22] MEDS ORDERED: SODIUM CHLORIDE 0.9% FLUSH 10 ML FLUSH IV FLUSH PRN (12:45)
[2017-11-22] MEDS ORDERED: ALUMINUM/MAGNESIUM/SIMETH 30 ML CUP PO PRN (12:45)
[2017-11-22] MEDS ORDERED: ONDANSETRON ODT 4 MG TAB PO PRN (13:00)
[2017-11-22] MEDS ORDERED: OXYTOCIN 30 UNITS-500ML PREMIX 500 ML IV SCH (13:00)
[2017-11-22] MEDS ORDERED: oxyCODONE/ACETAMINOPHEN 5 MG/325 MG TAB PO PRN (13:00)
[2017-11-22] MEDS ORDERED: DOCUSATE SODIUM 50 MG/SENNA 8.6 MG TAB PO PRN (13:00)
[2017-11-22] MEDS: IBUPROFEN 800 MG TAB PO PRN (13:38)
[2017-11-22] MEDS ORDERED: MEASLES, MUMPS, RUBELLA VACCINE 0.5 ML VIAL SQ ONE (16:00)
[2017-11-22] MEDS ORDERED: DIPHTH/TETANUS/ACEL PERTUSSIS (BOOSTER) 0.5 ML VIAL/PFS IM ONE (16:00)
[2017-11-22] MEDS: SODIUM CHLORIDE 0.9% FLUSH 10 ML FLUSH IV FLUSH SCH (21:00)
[2017-11-22] MEDS ORDERED: ZOLPIDEM TARTRATE 5 MG TAB PO PRN (21:00)
[2017-11-23 08:00] VITALS: BP 102/62; PULSE 84; RESP 18; TEMP 97.9; O2SAT 97
--- NOTE | 2017-11-23 08:21 | HHI.OB ---
Subjective Post Day: 1 Remarks Patient doing well this morning. Patient is having some discomfort from the sutures. Her pain is mostly controlled with Motrin. She is ambulating and voiding without difficulty. Vaginal bleeding is assistant controller. She is passing gas. She denies fever, chills, nausea, vomiting, shortness of breath, chest pain. Because she was THC positive, She is bottlefeeding baby but pumping breast milk. Objective Vitals/I&O Vital Signs Date Time Temp Pulse Resp B/P (MAP) Pulse Ox O2 Delivery O2 Flow Rate FiO2 11/22/17 20:30 98.0 78 18 99/57 (71) 98 11/22/17 14:30 97.8 100 11/22/17 14:30 73 16 114/72 (86) 11/22/17 13:00 74 114/76 (89) 11/22/17 12:56 97.8 18 11/22/17 12:45 76 120/69 (86) 11/22/17 12:30 76 118/72 (87) 11/22/17 12:16 73 125/82 (96) 11/22/17 12:15 16 11/22/17 12:00 98.7 86 20 11/22/17 12:00 126/79 (95) 11/22/17 11:20 98 11/22/17 11:16 85 137/55 (82) 11/22/17 11:15 85 11/22/17 11:10 83 11/22/17 11:05 75 11/22/17 11:00 72 11/22/17 11:00 76 116/74 (88) 11/22/17 10:50 74 11/22/17 10:45 73 11/22/17 10:45 71 105/71 (82) 11/22/17 10:40 72 11/22/17 10:35 71 11/22/17 10:31 77 113/93 (100) 11/22/17 10:30 74 18 11/22/17 10:30 98.7 11/22/17 10:25 74 11/22/17 10:20 68 11/22/17 10:15 66 11/22/17 10:15 69 111/70 (84) 11/22/17 10:10 75 11/22/17 10:05 80 11/22/17 10:03 73 112/71 (85) 11/22/17 10:00 75 11/22/17 10:00 72 108/69 (82) 11/22/17 09:55 68 11/22/17 09:50 69 11/22/17 09:45 77 114/76 (89) 11/22/17 09:45 73 11/22/17 09:40 68 11/22/17 09:35 71 11/22/17 09:30 73 11/22/17 09:30 20 11/22/17 09:30 70 114/66 (82) 11/22/17 09:25 75 11/22/17 09:20 79 11/22/17 09:15 75 112/64 (80) 11/22/17 09:15 75 11/22/17 09:10 90 11/22/17 09:05 83 11/22/17 09:00 84 11/22/17 09:00 74 101/83 (89) 11/22/17 08:55 66 11/22/17 08:50 65 11/22/17 08:45 69 111/65 (80) 11/22/17 08:45 68 11/22/17 08:40 77 11/22/17 08:39 68 117/58 (77) 11/22/17 08:35 74 11/22/17 08:35 83 107/58 (74) 11/22/17 08:30 76 11/22/17 08:30 76 110/64 (79) 11/22/17 08:30 98.3 11/22/17 08:29 18 11/22/17 08:25 81 110/71 (84) 11/22/17 08:25 79 11/22/17 08:20 70 112/62 (79) Objective Remarks GENERAL: Well-nourished, well-developed patient. CARDIOVASCULAR: Regular rate and rhythm without murmurs, gallops, or rubs. RESPIRATORY: Breath sounds equal bilaterally. No accessory muscle use. ABDOMEN/GI: Abdomen soft, non-tender. Fundus: Firm, non-tender at umbilicus. GENITOURINARY: Light to moderate bleeding. EXTREMITIES: No cyanosis or edema, non-tender, without signs of DVT. Medications and IVs Current Medications Medications (Trade) Dose Ordered Sig/Bridger Route Start Time Stop Time Status Last Admin Lactated Ringer's 1,000 ml @ 125 mls/hr Q8H IV 11/22/17 06:22 Lactated Ringer's 1,000 ml @ 3,000 mls/hr Q20M PRN IV 11/22/17 06:22 11/22/17 07:36 Sodium Chloride 500 ml @ 1,000 mls/hr ONCE PRN IV 11/22/17 06:30 11/29/17 06:29 Sodium Chloride 1,000 ml @ 100 mls/hr Q10H PRN IV 11/22/17 06:42 (Xylocaine 1% Inj (50 ml)) 0.1 ml UNSCH X1 PRN I-DERMAL 11/22/17 06:30 11/25/17 06:29 (Bicitra Liq) 30 ml WASTE REDUCTION COORDINATOR PO 11/22/17 06:30 11/26/17 06:29 (Zofran Inj) 4 mg Q6H PRN IV PUSH 11/22/17 06:30 11/22/17 12:50 (fentaNYL INJ) 50 mcg Q1H PRN IV PUSH 11/22/17 06:30 (fentaNYL INJ) 100 mcg Q1H PRN IV PUSH 11/22/17 06:30 (Xylocaine 1% Inj (50 ml)) 10 ml UNSCH X1 PRN INFIL 11/22/17 06:30 11/24/17 06:29 (Muri-Lube Oil) 10 ml UNSCH PRN TOPICAL 11/22/17 06:30 Miscellaneous Information No systemic narcotics to be given except... UNSCH PRN .XX 11/22/17 09:00 11/23/17 08:59 Miscellaneous Information DO NOT ADMINISTER ANY ANTICOAGUL... UNSCH PRN .XX 11/22/17 09:00 11/23/17 08:59 Fentanyl/ Bupivacaine HCl 100 ml @ 0 mls/hr TITRATE EPIDURAL 11/22/17 09:00 (ePHEDrine/NS 25 MG/5 ML SYR) 10 mg UNSCH PRN IV PUSH 11/22/17 09:00 11/23/17 08:59 (NS Flush) 2 ml BID IV FLUSH 11/22/17 21:00 11/22/17 21:00 (NS Flush) 2 ml UNSCH PRN IV FLUSH 11/22/17 12:45 (Tylenol) 650 mg Q4H PRN PO 11/22/17 12:45 (Motrin) 800 mg Q8H PRN PO 11/22/17 13:00 11/22/17 13:38 (Percocet 5-325 Mg) 1 tab Q4H PRN PO 11/22/17 13:00 (Americaine 20% Top Spr) 1 spray Q4H PRN TOPICAL 11/22/17 12:45 (Tucks Pads) 1 applic QID PRN TOPICAL 11/22/17 13:00 (Hillary-Colace) 2 tab Q12H PRN PO 11/22/17 13:00 (Ambien) 5 mg HS PRN PO 11/22/17 21:00 (Mag-Al Plus Susp Liq) 15 ml Q8H PRN PO 11/22/17 12:45 (Zofran Odt) 4 mg Q6H PRN PO 11/22/17 13:00 Assessment/Plan Assessment and Plan 22 year old PPD1 1. Care - AFVSS since delivery - Motrin prn pain - Encouraged OOB, as tolerated - Pelvic rest x 6 weeks - She is considering contraception options at this time. - Bottle feeding for now as she was THC positive on admission. She plans to pump breast milk and get rid of it until 2-3 weeks of being off marijuana and then start breast-feeding. - Will f/u with me in 6 weeks - Anticipate d/c tomorrow Discussed with Dr. Cordon Discharge Planning Likely tomorrow. Albert Hdez MD, R3 Nov 23, 2017 08:21
[2017-11-23] MEDS: IBUPROFEN 800 MG TAB PO PRN ×2 (08:51→17:59)
[2017-11-23] MEDS: WITCH HAZEL 50%/GLYCERIN 12.5% 40 PAD JAR TOPICAL PRN ×2 (08:51→18:02)
[2017-11-23 19:00] VITALS: BP 120/72; PULSE 78; RESP 18; TEMP 98.5
[2017-11-23] MEDS: SODIUM CHLORIDE 0.9% FLUSH 10 ML FLUSH IV FLUSH SCH (22:41)
[2017-11-23] MEDS: LACTATED RINGER'S 1000 ML INJ 1,000 ML IV SCH (22:41)
[2017-11-24] MEDS: IBUPROFEN 800 MG TAB PO PRN (05:00)
--- NOTE | 2017-11-24 08:58 | HHI.OB ---
Subjective Remarks 22 year old s/p at 38/6 wks gestation, PPD 2. AFVSS. Patient reports she is feeling well. Bleeding is decreasing and pain is well-controlled. She is breast feeding and bonding well with baby. Ambulating without difficulties. She is tolerating a diet without nausea or vomiting. She has had a bowel movement. She has passed gas. Denies chest pain, dysuria, shortness of breath, or calf pain. Objective Vitals/I&O Vital Signs Date Time Temp Pulse Resp B/P (MAP) Pulse Ox O2 Delivery O2 Flow Rate FiO2 11/23/17 19:00 78 18 120/72 (88) 11/23/17 19:00 98.5 Objective Remarks GENERAL: Well-nourished, well-developed patient. CARDIOVASCULAR: Regular rate and rhythm without murmurs, gallops, or rubs. RESPIRATORY: Breath sounds equal bilaterally. No accessory muscle use. ABDOMEN/GI: Abdomen soft, non-tender. Fundus: Firm, non-tender at umbilicus. GENITOURINARY: Light to moderate bleeding. EXTREMITIES: No cyanosis or edema, non-tender, without signs of DVT. Medications and IVs Current Medications Medications (Trade) Dose Ordered Sig/Bridger Route Start Time Stop Time Status Last Admin Lactated Ringer's 1,000 ml @ 125 mls/hr Q8H IV 11/22/17 06:22 Lactated Ringer's 1,000 ml @ 3,000 mls/hr Q20M PRN IV 11/22/17 06:22 11/22/17 07:36 Sodium Chloride 500 ml @ 1,000 mls/hr ONCE PRN IV 11/22/17 06:30 11/29/17 06:29 Sodium Chloride 1,000 ml @ 100 mls/hr Q10H PRN IV 11/22/17 06:42 (Xylocaine 1% Inj (50 ml)) 0.1 ml UNSCH X1 PRN I-DERMAL 11/22/17 06:30 11/25/17 06:29 (Bicitra Liq) 30 ml [employer] PO 11/22/17 06:30 11/26/17 06:29 (Zofran Inj) 4 mg Q6H PRN IV PUSH 11/22/17 06:30 11/22/17 12:50 (fentaNYL INJ) 50 mcg Q1H PRN IV PUSH 11/22/17 06:30 (fentaNYL INJ) 100 mcg Q1H PRN IV PUSH 11/22/17 06:30 (Muri-Lube Oil) 10 ml UNSCH PRN TOPICAL 11/22/17 06:30 Fentanyl/ Bupivacaine HCl 100 ml @ 0 mls/hr TITRATE EPIDURAL 11/22/17 09:00 (NS Flush) 2 ml BID IV FLUSH 11/22/17 21:00 11/22/17 21:00 (NS Flush) 2 ml UNSCH PRN IV FLUSH 11/22/17 12:45 (Tylenol) 650 mg Q4H PRN PO 11/22/17 12:45 (Motrin) 800 mg Q8H PRN PO 11/22/17 13:00 11/24/17 05:00 (Percocet 5-325 Mg) 1 tab Q4H PRN PO 11/22/17 13:00 (Americaine 20% Top Spr) 1 spray Q4H PRN TOPICAL 11/22/17 12:45 11/23/17 08:51 (Tucks Pads) 1 applic QID PRN TOPICAL 11/22/17 13:00 11/23/17 18:02 (Hillary-Colace) 2 tab Q12H PRN PO 11/22/17 13:00 11/23/17 08:51 (Ambien) 5 mg HS PRN PO 11/22/17 21:00 (Mag-Al Plus Susp Liq) 15 ml Q8H PRN PO 11/22/17 12:45 (Zofran Odt) 4 mg Q6H PRN PO 11/22/17 13:00 Assessment/Plan Assessment and Plan 22 year old PPD 2 Care - AFVSS since delivery - Motrin prn pain - Encouraged OOB, as tolerated - Pelvic rest x 6 weeks - She is considering contraception options at this time; will discuss further in office at f/u - Bottle feeding for now as she was THC positive on admission. She plans to pump breast milk and get rid of it until 2-3 weeks of being off marijuana and then start breast-feeding. - Will f/u with Dr. Keo Hdez in 6 weeks Homar Whalen MD Nov 24, 2017 08:58
[2017-11-24] MEDS ORDERED: IBUP1TAB7 PO (09:00)
--- NOTE | 2017-11-24 09:00 | HHI.DCPOC ---
Discharge Care Plan Diagnosis: (1) Normal vaginal delivery Report Symptoms to Your Doctor -Temperature above 100.5 degrees -Redness, of incision or excessive or foul smelling drainage -Unusual pain or calf pain -Increased vaginal bleeding -Painful or difficulty urinating -Feelings of extreme sadness or anxiety after 2 weeks Goals to Promote Your Health * To prevent worsening of your condition and complications * To maintain your health at the optimal level Directions to Meet Your Goals Take your medications as prescribed Follow your dietary instruction Follow activity as directed Ensure plenty of rest for recovery Drink fluids for hydration Keep your appointments as scheduled Take your immunizations and boosters as scheduled If your symptoms worsen call your PCP, if no PCP go to Urgent Care Center or Emergency Room Smoking is Dangerous to Your Health. Avoid second hand smoke Call the 24-hour crisis hotline for domestic abuse at Homar Whalen MD Nov 24, 2017 09:00
[2017-11-24 10:40] VITALS: BP 114/72; PULSE 70; RESP 20; TEMP 98.2; O2SAT 100
[2017-11-27] MEDS ORDERED: BACT800T5 PO (08:19)
== END 2017-11-24 12:01 | disposition home or self-care (01) | DRG 775 ==
LOC: HOBED 03:08 → H2EA 06:18 → H1EA 14:08
PROVIDERS: ADMIT Obstetrics & Gynecology Maternal & Fetal Medicine; ATTEND Obstetrics & Gynecology Maternal & Fetal Medicine
PROC: 10E0XZZ Delivery of Products of Conception, External Approach (ICD-10-PCS; principal; 2017-11-22)
PROC: 0HQ9XZZ Repair Perineum Skin, External Approach (ICD-10-PCS; 2017-11-22)
PROC: 3E0R3BZ Introduction of Anesthetic Agent into Spinal Canal, Percutaneous Approach (ICD-10-PCS; 2017-11-22)
PROC: 00HU33Z Insertion of Infusion Device into Spinal Canal, Percutaneous Approach (ICD-10-PCS; 2017-11-22)
DX: O99.324 Drug use complicating childbirth (principal); F12.90 Cannabis use, unspecified, uncomplicated; O70.0 First degree perineal laceration during delivery; Z3A.39 39 weeks gestation of pregnancy; Z37.0 Single live birth
CPT/HCPCS: 59025; 80307; 81001; 85025; 86850; 86900; 86901; J2405; J7120

== ENCOUNTER 2017-11-26 21:53 | Emergency (ER) | payer MEDICAID ==
[~2017-11-26 21:53] MED LIST changes: +IBUP1TAB7 PO
[2017-11-26] MEDS ORDERED: LIDOCAINE HCL 1% 20 ML VIAL ONE (22:35)
--- NOTE | 2017-11-26 22:51 | PD ---
HPI Chief Complaint Torn suture (Guanakito Mcarthur MD) Travel History International Travel<30 Days: No Contact w/Intl Traveler<30Days: No (Guanakito Mcarthur MD) History of Present Illness HPI The patient is a 22 year old female who is now a delivered via on 11/22 and discharged home on 11/24 who presents to the ED for evaluation of a labial suture being out of place. The patient reports she passed a large blood clot vaginally early this morning and since then she had been having dysuria. Prior to coming in, she stated she had severe dysuria and noticed possible suture coming from her vagina while in the restroom. She states overall the vaginal bleeding has been decreasing since delivery. She denies any fevers. Denies abdominal or pelvic pain. Denies other abnormal vaginal discharge. Para: 1 : 1 (Guanakito Mcarthur MD) History Past Medical History Medical History: Denies Significant Hx (Guanakito Mcarthur MD) Obstetric History Obstetric History Now (Guanakito Mcarthur MD) Past Surgical History Surgical History: No Previous Surgery (Guanakito Mcarthur MD) Family History Family History: Negative (Guanakito Mcarthur MD) Social History Alcohol Use: No Tobacco Use: No Substance Abuse: Yes (occasional marijuana use) (Guanakito Mcarthur MD) Allergies-Medications (Allergen,Severity, Reaction): Coded Allergies: latex (Verified Allergy, Severe, Anaphylaxis, 11/13/17) codeine (Verified Adverse Reaction, Severe, Nausea/Vomiting, 11/13/17) Home Meds Active Scripts Sulfamethoxazole-Trimethoprim (Bactrim DS) 800-160 Mg Tab, 1 TAB PO BID for Infection, #6 TAB 0 Refills Prov:Guanakito Mcarthur MD 11/27/17 Ibuprofen (Ibuprofen) 800 Mg Tab, 800 MG PO Q8H Y for CRAMPING, #30 TAB Prov:Homar Whalen MD 11/24/17 Vit-Iron Carbonyl ( Plus Iron 29-1 mg) 29 Mg Iron-1 Mg Tab, 1 TAB PO DAILY for Nutritional Supplement, #30 TAB 0 Refills Prov:Albert Hdez MD, R3 11/08/17 Review of Systems Except as stated in HPI: all other systems reviewed are Neg (Guanakito Mcarthur MD) Physical Exam Narrative GENERAL: Well-nourished, well-developed patient. SKIN: Warm and dry. HEAD: Normocephalic and atraumatic. EYES: No scleral icterus. No injection or drainage. ENT: No nasal drainage noted. Mucous membranes pink. Airway patent. NECK: Supple, trachea midline. No JVD. CARDIOVASCULAR: Regular rate and rhythm without murmurs, gallops, or rubs. RESPIRATORY: Breath sounds equal bilaterally. No accessory muscle use. ABDOMEN/GI: Abdomen soft, non-tender throughout, no rebound, no guarding GENITOURINARY: External Genitalia (examination and suture removal performed with female grade setter present in the room): There are two sutures visualized along the left superior aspect of labia minora that appear torn, portion of labia minora here is disconnected with slight granulation tissue present along the edges. No vaginal bleeding. EXTREMITIES: No cyanosis or edema. BACK: Nontender without obvious deformity. NEUROLOGICAL: Awake and alert. Motor and sensory grossly within normal limits. Normal speech. (Guanakito Mcarthur MD) Data Data Orders Orders Lidocaine 1% Inj (Xylocaine 1% Inj) (11/26/17 22:35) (Guanakito Mcarthur MD) [facility] Medical Record Reviewed: Yes Plan 22 year old female now a evaluated in the OB ED due to a torn suture used to repair a left labial laceration. - 2 sutures from left labial laceration removed after application of lidocaine 2 % jelly - Discussed with patient that as there appears to be granulation tissue forming along the edges of the labial laceration that a repair of this would not be indicated. Advised her that for cosmetic purposes she may have this removed at a later time - Recommended to avoid dysuria the patient may void into water in a bathtub, and may use topical lidocaine jelly for pain relief - Urine dipstick showing moderate leuk esterase, neg nitrite, will send for UA and culture if indicated per protocol and f/u as outpatient at [facility] - Advised f/u at our [facility] in one week for repeat examination of the labia sdw Dr. Weiss and Dr. Hickman (Guanakito Mcarthur MD) Diagnosis Diagnosis: Primary Impression: Broken suture Disposition: 01 DISCHARGE HOME Condition: Stable Patient Instructions: General Instructions Collaborating MD Comments Patient seen and examined. Some granulation tissue noted, unable to suture. Will heal by secondary intention with follow up . (Yulissa Weiss MD) Guanakito Mcarthur MD Nov 26, 2017 22:51 Yulissa Weiss MD Nov 29, 2017 09:57
[2017-11-26] MEDS ORDERED: LIDOCAINE 2% JELLY 5 ML TUBE TOPICAL ONE (23:00)
[2017-11-26 23:20] LABS: AMORPHOUS SEDIMENT, URINE RARE; BACTERIA, URINE RARE /hpf; BILIRUBIN, URINE NEG (NEG); BLOOD, URINE MOD (NEG); GLUCOSE,URINE NEG (NEG); KETONE, URINE NEG (NEG); MUCUS URINE FEW /lpf (OCC); NITRITE,URINE NEG (NEG); SQUAMOUS EPITHELIAL CELL URINE 4 /hpf (0-5); URINE COLOR YELLOW (YELLW/STRAW); URINE LEUKOCYTE ESTERASE LARGE (NEG)
[2017-11-27] MEDS ORDERED: BACT800T5 PO (08:19)
== END 2017-11-26 23:15 | disposition home or self-care (01) ==
LOC: HOBED 21:53
DX: O90.1 Disruption of perineal obstetric wound (principal)
CPT/HCPCS: 81001; 87086; 99282

== ENCOUNTER 2017-12-15 16:26 | Emergency (ER) | payer MEDICAID ==
[~2017-12-15] VITALS: Ht 162.6 cm; Wt 50.0 kg
[~2017-12-15 16:26] MED LIST changes: +BACT800T5 PO
[2017-12-15 16:29] VITALS: BP 122/77; PULSE 87; RESP 14; TEMP 98; O2SAT 98
--- NOTE | 2017-12-15 17:43 | PD ---
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 She states she has had mild to moderate cramping as well. She denies fever, chills, or other vaginal discharge. She states she did not start taking control after her . She states there is no way she could be as she has not had sex since the delivery of her baby. Patient denies nausea, vomiting, or other symptoms. She is allergic to codeine and latex. PFSH Past Medical History Influenza Vaccination: Yes ?: Not Social History Alcohol Use: No Tobacco Use: No Substance Use: No Allergies-Medications (Allergen,Severity, Reaction): Coded Allergies: latex (Verified Allergy, Severe, Anaphylaxis, 12/15/17) codeine (Verified Adverse Reaction, Severe, Nausea/Vomiting, 12/15/17) Reported Meds & Prescriptions Reported Meds & Active Scripts Active Ibuprofen 800 Mg Tab 800 Mg PO Q8H PRN Plus Iron 29-1 mg ( Vit-Iron Carbonyl) 29 Mg Iron-1 Mg Tab 1 Tab PO DAILY Review of Systems Except as stated in HPI: all other systems reviewed are Neg General / Constitutional: No: Fever, Chills Eyes: No: Visual changes HENT: No: Headaches Cardiovascular: No: Chest Pain or Discomfort Respiratory: No: Shortness of Breath Gastrointestinal: No: Abdominal Pain Genitourinary: Positive: Pelvic Pain, Vaginal Bleeding, No: Urgency, Frequency , Dysuria, Nocturia, Hematuria, Flank Pain, Discharge Musculoskeletal: No: Pain Skin: No Rash Neurologic: No: Weakness Psychiatric: No: Depression Endocrine: No: Polydipsia Hematologic/Lymphatic: No: Easy Bruising Physical Exam Narrative GENERAL: Patient appears in no obvious distress SKIN: Warm and dry. Normal color. Normal turgor. HEAD: Atraumatic. Normocephalic. EYES: Pupils equal and round. No scleral icterus. No injection or drainage. ENT: No nasal bleeding or discharge. Mucous membranes pink and moist. Pharynx is clear. Airways patent NECK: Trachea midline. Supple and nontender CARDIOVASCULAR: Regular rate and rhythm. RESPIRATORY: No accessory muscle use. Clear to auscultation. Breath sounds equal bilaterally. GASTROINTESTINAL: Abdomen soft, mild diffuse suprapubic tenderness. Nondistended. Hepatic and splenic margins not palpable. No CVA tenderness. MUSCULOSKELETAL: Extremities without clubbing, cyanosis, or edema. No obvious deformities. NEUROLOGICAL: Awake and alert. No obvious cranial nerve deficits. Motor grossly within normal limits. Five out of 5 muscle strength in the arms and legs. Normal speech. PSYCHIATRIC: Appropriate mood and affect; insight and judgment normal. Data Data Last Documented VS Vital Signs Date Time Temp Pulse Resp B/P (MAP) Pulse Ox O2 Delivery O2 Flow Rate FiO2 12/15/17 19:54 79 16 98 Room Air 12/15/17 16:29 98.0 Orders Orders Complete Blood Count With Diff (12/15/17 17:36) Comprehensive Metabolic Panel (12/15/17 17:36) Type And Screen (12/15/17 17:36) Us Pelvis Comp Lacquer Mixer/Non-Preg (12/15/17 ) Urinalysis - C+S If Indicated (12/15/17 17:36) Iv Access Insert/Monitor (12/15/17 17:36) Sodium Chloride 0.9% Flush (Ns Flush) (12/15/17 17:45) Sodium Chlor 0.9% 1000 Ml Inj (Ns 1000 M (12/15/17 17:45) Misoprostol (Cytotec) (12/15/17 19:30) Ondansetron Inj (Zofran Inj) (12/15/17 19:30) Morphine Inj (Morphine Inj) (12/15/17 19:30) Morphine Inj (Morphine Inj) (12/15/17 19:30) Labs Laboratory Tests Test 12/15/17 18:00 White Blood Count 8.8 TH/MM3 Red Blood Count 4.12 MIL/MM3 Hemoglobin 12.7 GM/DL Hematocrit 35.7 % Mean Corpuscular Volume 86.7 FL Mean Corpuscular Hemoglobin 30.7 PG Mean Corpuscular Hemoglobin Concent 35.5 % Red Cell Distribution Width 13.2 % Platelet Count 393 TH/MM3 Mean Platelet Volume 7.5 FL Neutrophils (%) (Auto) 55.9 % Lymphocytes (%) (Auto) 33.7 % Monocytes (%) (Auto) 7.3 % Eosinophils (%) (Auto) 2.6 % Basophils (%) (Auto) 0.5 % Neutrophils # (Auto) 4.9 TH/MM3 Lymphocytes # (Auto) 3.0 TH/MM3 Monocytes # (Auto) 0.6 TH/MM3 Eosinophils # (Auto) 0.2 TH/MM3 Basophils # (Auto) 0.0 TH/MM3 CBC Comment DIFF FINAL Differential Comment Urine Color YELLOW Urine Turbidity CLEAR Urine pH 6.5 Urine Specific [place] 1.021 Urine Protein TRACE mg/dL Urine Glucose (UA) NEG mg/dL Urine Ketones NEG mg/dL Urine Occult Blood LARGE Urine Nitrite NEG Urine Bilirubin NEG Urine Urobilinogen LESS THAN 2.0 MG/DL Urine Leukocyte Esterase TRACE Urine RBC /hpf Urine WBC 4 /hpf Urine Squamous Epithelial Cells <1 /hpf Urine Amorphous Sediment RARE Urine Mucus FEW /lpf Microscopic Urinalysis Comment CULT NOT INDICATED Blood Urea Nitrogen 11 MG/DL Creatinine 0.72 MG/DL Random Glucose 82 MG/DL Total Protein 7.3 GM/DL Albumin 3.7 GM/DL Calcium Level 8.7 MG/DL Alkaline Phosphatase 78 U/L Aspartate Amino Transf (AST/SGOT) 19 U/L Alanine Aminotransferase (ALT/SGPT) 27 U/L Total Bilirubin 0.3 MG/DL Sodium Level 140 MEQ/L Potassium Level 4.0 MEQ/L Chloride Level 107 MEQ/L Carbon Dioxide Level 28.3 MEQ/L Anion Gap 5 MEQ/L Estimat Glomerular Filtration Rate 100 ML/MIN [facility] Medical Decision Making Medical Screen Exam Complete: Yes Emergency Medical Condition: Yes Medical Record Reviewed: Yes Differential Diagnosis . Vaginal bleeding. Possible retained products. Narrative Course Patient appears medically stable at time of exam. Labs ordered including CBC, CMP, urinalysis, type and screen. IV access is obtained the patient is given 4 mg Zofran IV as well as 1000 mL normal saline bolus. Pelvic ultrasound is ordered. Labs are all within normal limits. Ultrasound shows: 1. Endometrium is thickened and heterogeneous with focal areas of increased vascularity. Although nonspecific this finding can be seen with retained products of conception or endometritis. 2. Ovaries have a normal appearance Calls placed to the OB hospitalist, Dr. Vogt, and the patient was discussed. She recommends 800 mg Cytotec rectally to induce uterine cramping. This was ordered. Patient also given 4 mg morphine IV in addition to 4 mg Zofran. 2115 hrs. patient is reassessed, and appears stable. Bleeding is improved with one small clot past. Call was placed to the hospitalist OB and patient is discussed. She recommends discharge with close follow-up with her [facility]. Diagnosis Primary Impression: Menorrhagia Qualified Codes: N92.1 - Excessive and frequent menstruation with irregular cycle Referrals: [place] Worker call for appointment Patient Instructions: General Instructions, Menorrhagia (ED) Additional Instructions: Labs are all within normal limits. Ultrasound shows: 1. Endometrium is thickened and heterogeneous with focal areas of increased vascularity. Although nonspecific this finding can be seen with retained products of conception or endometritis. 2. Ovaries have a normal appearance Calls placed to the OB hospitalist, Dr. Vogt, and the patient was discussed. She recommends 800 mg Cytotec rectally to induce uterine cramping. This was ordered. Patient also given 4 mg morphine IV in addition to 4 mg Zofran. 5 hrs. patient is reassessed, and appears stable. Bleeding is improved with one small clot past. Call was placed to the hospitalist OB and patient is discussed. She recommends discharge with close follow-up with her [facility]. Med/Other Pt SpecificInfo: No Meds Exist/No RX given Disposition: DISCHARGE HOME Condition: Stable Ty Hurtado Dec 15, 2017 17:43
[2017-12-15] MEDS ORDERED: SODIUM CHLOR 0.9% 1000 ML INJ 1,000 ML IV ONE (17:45)
[2017-12-15] MEDS ORDERED: SODIUM CHLORIDE 0.9% FLUSH 10 ML FLUSH IVF PRN (17:45)
[2017-12-15 18:33] LABS: AUTOMATED NEUTROPHIL # 4.9 TH/MM3 (1.8-7.7); BASOPHIL % 0.5 % (0.0-2.0); EOSINOPHIL # 0.2 TH/MM3 (0-0.4); EOSINOPHIL % 2.6 % (0.0-4.0); HEMATOCRIT 35.7 % (35.0-46.0); HEMOGLOBIN 12.7 GM/DL (11.6-15.3); LYMPH % 33.7 % (9.0-44.0); MEAN CELL VOLUME 86.7 FL (80.0-100.0); MEAN CORPUSCULAR HEMOGLOBIN 30.7 PG (27.0-34.0); MEAN CORPUSCULAR HGB CONC 35.5 % (32.0-36.0); MEAN PLATELET VOLUME 7.5 FL (7.0-11.0); MONO % 7.3 % (0.0-8.0); MONOCYTE # 0.6 TH/MM3 (0-0.9); NEUT % 55.9 % (16.0-70.0); PLATELET COUNT 393 TH/MM3 (150-450); RED BLOOD COUNT 4.12 MIL/MM3 (4.00-5.30); RED CELL DISTRIBUTION WIDTH 13.2 % (11.6-17.2); WHITE BLOOD COUNT 8.8 TH/MM3 (4.0-11.0)
[2017-12-15 18:35] LABS: AMORPHOUS SEDIMENT, URINE RARE; BILIRUBIN, URINE NEG (NEG); BLOOD, URINE LARGE (NEG); GLUCOSE,URINE NEG (NEG); KETONE, URINE NEG (NEG); MUCUS URINE FEW /lpf (OCC); NITRITE,URINE NEG (NEG); PH, URINE 6.5 (5.0-8.5); SQUAMOUS EPITHELIAL CELL URINE <1 /hpf (0-5); URINE COLOR YELLOW (YELLW/STRAW); URINE LEUKOCYTE ESTERASE TRACE (NEG)
--- NOTE | 2017-12-15 18:50 | RADRPT ---
EXAM DATE/TIME: 12/15/2017 18:10 [facility] COMPARISON: No previous studies available for comparison. INDICATIONS : Bleeding. 3 weeks post-. MEDICAL HISTORY : None. SURGICAL HISTORY : None. ENCOUNTER: Initial ACUITY: 3 weeks PAIN SCORE: 0/10 LOCATION: Bilateral pelvis MEASUREMENTS: UTERUS: 10.4 x 8.8 x 6.1 cm cm ENDOMETRIAL STRIPE: >20 mm RIGHT OVARY: 4.1 x 1.6 x 1.5 cm LEFT OVARY: 3.8 x 2.6 x 2.1 cm FINDINGS: UTERUS: The myometrium has homogeneous echotexture without mass. The endometrium is heterogeneous and thicke beverly measuring up to 2.4 cm in thickness and demonstrates areas of focal increased vascularity. RIGHT OVARY: Ovary contains no mass or significant cystic lesion. LEFT OVARY: Ovary contains no mass or significant cystic lesion. MISCELLANEOUS: No free fluid. CONCLUSION: 1. Endometrium is thickened and heterogeneous with focal areas of increased vascularity. Although non specific this finding can be seen with retained products of conception or endometritis. 2. Ovaries have a normal appearance. Norris Kendall MD on December 15, 2017 at 18:46 Board Certified Radiologist. This report was verified electronically.
[2017-12-15 18:55] LABS: ALBUMIN 3.7 GM/DL (3.4-5.0); AST (GOT) 19 U/L (15-37); BICARBONATE 28.3 MEQ/L (21.0-32.0); BLOOD UREA NITROGEN 11 MG/DL (7-18); CALCIUM 8.7 MG/DL (8.5-10.1); CHLORIDE 107 MEQ/L (98-107); CREATININE 0.72 MG/DL (0.50-1.00); GLOMERULAR FILTRATION RATE 100 ML/MIN (>89); GLUCOSE,RANDOM 82 MG/DL (74-106); SODIUM (NA) 140 MEQ/L (136-145)
[2017-12-15 18:56] LABS: ALT (GPT) 27 U/L (10-53)
[2017-12-15 18:58] LABS: ALKALINE PHOSPHATASE 78 U/L (45-117); TOTAL BILIRUBIN ADULT 0.3 MG/DL (0.2-1.0); TOTAL PROTEIN 7.3 GM/DL (6.4-8.2)
[2017-12-15] MEDS ORDERED: ONDANSETRON HCL 4 MG/2 ML VIAL IV PUSH ONE (19:30)
[2017-12-15] MEDS ORDERED: MORPHINE SULFATE 2 MG/ML INJ IV PUSH ONE (19:30)
[2017-12-15] MEDS ORDERED: MORPHINE SULFATE 2 MG/ML INJ IM ONE (19:30)
[2017-12-15] MEDS ORDERED: MISOPROSTOL 200 MCG TAB RECTAL ONE (19:30)
[2017-12-15 19:54] VITALS: PULSE 79; RESP 16; O2SAT 98
== END 2017-12-15 21:40 | disposition home or self-care (01) ==
LOC: NEPD 16:26
DX: O72.2 Delayed and secondary postpartum hemorrhage (principal)
CPT/HCPCS: 76856; 80053; 81001; 85025; 86850; 86900; 86901; 96374; 96375; 99284; J2270; J2405; J7030

== ENCOUNTER 2017-12-18 13:27 | Observation (INO) | payer MEDICAID ==
[~2017-12-18 13:27] MED LIST changes: -BACT800T5 PO
[2017-12-18 13:36] VITALS: BP 121/65; PULSE 88; RESP 14; TEMP 98.2; O2SAT 99
[2017-12-18 15:34] LABS: HEMATOCRIT 36.6 % (35.0-46.0); HEMOGLOBIN 12.4 GM/DL (11.6-15.3)
--- NOTE | 2017-12-18 15:45 | PD ---
HPI Chief Complaint: Bleeding Time Seen by Provider: 15:25 Travel History International Travel<30 days: No Contact w/Intl Traveler<30days: No Traveled to known affect area: No History of Present Illness HPI 22-year-old female presents to the emergency department with complaint of passing 4 or 5 large blood clots from her vagina about an hour to 2 hours ago. She is approximately 3-1/2 weeks . Reporting lower abdominal cramping. Denies lightheadedness, dizziness, fever, vomiting. Denies chest pain, shortness of breath. Was given Cytotec when she was seen here on December 15. Has not taken any other medications or try any other treatments to alleviate her symptoms. Did see her extruder tender yesterday and was ordered a outpatient ultrasound which she was unable to obtain secondary to insurance reasons. She started bleeding more today and was told to come to the ER for evaluation. Rates pain 5/10. Describes as cramping. No known aggravating or relieving factors. Primary care provider is Dr. Albert Hdez. Allergies to latex and codeine. Denies significant past medical history. Has no other medical complaints. No other modifying factors or associated signs and symptoms. [facility] Social History Alcohol Use: No Tobacco Use: No Substance Use: No Allergies-Medications (Allergen,Severity, Reaction): Coded Allergies: latex (Verified Allergy, Severe, Anaphylaxis, 12/18/17) codeine (Verified Adverse Reaction, Severe, Nausea/Vomiting, 12/18/17) Reported Meds & Prescriptions Reported Meds & Active Scripts Active Review of Systems Except as stated in HPI: all other systems reviewed are Neg Physical Exam Narrative GENERAL: Well-nourished, well-developed female patient, in no acute distress; afebrile, nontoxic-appearing SKIN: Warm and dry. HEAD: Atraumatic. Normocephalic. EYES: Pupils equal and round. No scleral icterus. No injection or drainage. ENT: Mucous membranes pink and moist. NECK: Trachea midline. No lymphadenopathy. CARDIOVASCULAR: Regular rate and rhythm. No murmur appreciated. RESPIRATORY: No accessory muscle use. Clear to auscultation. Breath sounds equal bilaterally. GASTROINTESTINAL: Abdomen soft, non-tender, nondistended. Tenderness on palpation to the mid pelvic region. Hepatic and splenic margins not palpable. No guarding. No rigidity. PELVIC: Exam done in the presence of a nurse. Speculum exam reveals large blood clots and moderate to large amount of dark red blood. Unable to visualize the cervix. BACK: No CVA tenderness. MUSCULOSKELETAL: No obvious deformities. No clubbing. No cyanosis. No edema. NEUROLOGICAL: Awake and alert. No obvious cranial nerve deficits. Motor grossly within normal limits. Normal speech. PSYCHIATRIC: Appropriate mood and affect; insight and judgment normal. Data Data Last Documented VS Vital Signs Date Time Temp Pulse Resp B/P (MAP) Pulse Ox O2 Delivery O2 Flow Rate FiO2 12/18/17 18:30 74 16 113/69 (84) 100 Room Air 12/18/17 13:36 98.2 Orders Orders Hgb & Hct (12/18/17 13:43) Us Pelvis Comp Coding Analyst/Non-Preg (12/18/17 ) Vital Signs (Adult) [id number] (12/18/17 19:06) ^ Have Supplies At Bedside (12/18/17 19:06) Complete Blood Count With Diff (12/18/17 19:06) Coag Profile (12/18/17 19:06) Type And Screen (12/18/17 19:06) Resp Oxygen Non Rebreathe Mask (12/18/17 ) Activity Oob Ad Tanna (12/18/17 19:06) Scd Bilateral/Knee High [place].QSHIFT (12/18/17 19:06) Comprehensive Metabolic Panel (12/18/17 19:06) Place In Observation (12/18/17 ) Consult Gynecology (12/18/17 ) Admit Order (Ed Use Only) (12/18/17 ) Vital Signs (Adult) Q4H (12/18/17 19:32) Diet Npo (12/19/17 Breakfast) Activity Oob With Assistance (12/18/17 19:32) Notify Dr: Other (12/18/17 19:32) Labs Laboratory Tests Test 12/18/17 15:11 Hemoglobin 12.4 GM/DL Hematocrit 36.6 % MDM Medical Decision Making Medical Screen Exam Complete: Yes Emergency Medical Condition: Yes Medical Record Reviewed: Yes Differential Diagnosis Retained products, hemorrhage, vaginal bleeding Narrative Course 22-year-old female with continued vaginal bleeding and is approximately 3-1/2 weeks. She was seen here on December 15 and had vaginal bleeding and pelvic ultrasound at that time. Pelvic ultrasound from 12/15/17 concluded: 1. Endometrium is thickened and heterogeneous with focal areas of increased vascularity. Although nonspecific this finding can be seen with retained products of conception or endometritis. 2. Ovaries have a normal appearance. The patient was given 800 mg of Cytotec and instructed to follow- up outpatient which she did yesterday. She was supposed to have a stat repeat ultrasound which was ordered by her PCP and she was unable to secondary to insurance. She had increased bleeding and passage of large clots again today and was told to come to the ER. Hemoglobin 12.4. Hematocrit 36.6. 1645: I called and spoke with Dr. muñoz, OB hospitalist, and since the patient is a patient of the residence she recommended for them to follow her. She did recommend repeat ultrasound. Pelvic ultrasound ordered. 1718: I spoke with Dr. Green, resident MD, and they will review the ultrasound report and decide whether the patient will be admitted or can follow up outpatient. 1852: Pelvic ultrasound concludes: . Pelvis Ultrasound 12/18/17 0000 Signed Impressions: Service Date/Time: Monday, December 18, 2017 17:30 - CONCLUSION: Stable appearance with findings concerning for retained products of conception. Norris Reyes MD Resident MD's at bedside and they have decided to admit the patient. Patient admitted. Physician Communication Physician Communication Residents Diagnosis Primary Impression: Retained products of conception, Admitting Information Admitting Physician Requests: Admit Brenna Willams Dec 18, 2017 15:45
--- NOTE | 2017-12-18 18:14 | RADRPT ---
EXAM DATE/TIME: 12/18/2017 17:30 [facility] COMPARISON: US PELVIS - COMPLETE (MAT TESTER,NON-PREG), December 15, 2017, 18:10. INDICATIONS : Increased bleeding. Three weeks post-. MEDICAL HISTORY : None. SURGICAL HISTORY : None. ENCOUNTER: Subsequent ACUITY: 3 days PAIN SCORE: 0/10 LOCATION: MEASUREMENTS: UTERUS: 10.3 x 7.6 x 5.8 cm ENDOMETRIAL STRIPE: >20 mm RIGHT OVARY: 3.6 x 3.3 x 1.6 cm LEFT OVARY: 3.1 x 2.1 x 1.7 cm FINDINGS: UTERUS: Similar to prior, the endometrium is thickened and heterogeneous RIGHT OVARY: Ovary contains no mass or significant cystic lesion. LEFT OVARY: Ovary contains no mass or significant cystic lesion. MISCELLANEOUS: No free fluid. CONCLUSION: Stable appearance with findings concerning for retained products of conception. Norris Reyes MD on December 18, 2017 at 18:11 Board Certified Radiologist. This report was verified electronically.
[2017-12-18 18:30] VITALS: BP 113/69; PULSE 74; RESP 16; O2SAT 100
--- NOTE | 2017-12-18 19:03 | HHI.HP ---
[facility] Service Family Medicine Primary Care Physician Albert Crowley , R3 MD Lemuel Admission Diagnosis Diagnoses: International Travel<30 Days: No Contact w/Intl Traveler<30days: No Known Affected Area: No History of Present Illness Patient is a 22 year old coming in today complaining of vaginal bleeding. She states she had a vaginal delivery approximately 3.5 weeks ago. Since then she's had improving intermittent bleeding with occasional clots. She has been changing pads approximately once every 4 hours, typically not fully saturated. A couple days ago she had a "large gush of blood" with significant amount blood which came out for approximately 5 minutes. Last night she complains of intermittent abdominal cramping which has continued until today. She reports a mild left-sided frontal headache which has been present since delivery. No changes in vision, lightheadedness, dizziness. No dysuria, increasing frequency , change in color/smell, hematuria. She denies nausea, vomiting, fever, chills. No chest pain, shortness of breath, palpitations, change in bowel habits. She also notes she feels warm right now, however she notes she typically feels like this when she has not breast pumped in a while. No other complaints at this time. Review of Systems Constitutional: DENIES: Fever, Chills, Change in appetite Endocrine: DENIES: Heat/cold intolerance, Polydipsia, Polyuria Eyes: DENIES: Blurred vision, Diplopia, Eye inflammation, Eye pain, Vision loss , Photosensitivity, Double Vision Ears, nose, mouth, throat: DENIES: Vertigo, Running Nose, Epistaxis Respiratory: DENIES: Cough, Sputum production, Shortness of breath Cardiovascular: DENIES: Chest pain, Palpitations, Syncope Gastrointestinal: DENIES: Abdominal pain, Black stools, Bloody stools, Constipation, Diarrhea, Nausea, Vomiting Genitourinary: COMPLAINS OF: Abnormal vaginal bleeding, DENIES: Urinary frequency, Hematuria, Dysuria Musculoskeletal: DENIES: Joint pain, Muscle aches, Stiffness Integumentary: DENIES: Abnormal pigmentation, Rash Hematologic/lymphatic: DENIES: Bruising, Lymphadenopathy Immunologic/allergic: DENIES: Eczema, Urticaria Neurologic: COMPLAINS OF: Headache, DENIES: Abnormal gait, Localized weakness Psychiatric: DENIES: Anxiety, Confusion Past Family Social History Past Medical History Denies Past Surgical History Denies Allergies: Coded Allergies: latex (Verified Allergy, Severe, Anaphylaxis, 12/18/17) codeine (Verified Adverse Reaction, Severe, Nausea/Vomiting, 12/18/17) Family History Mother: Thyroid issues, graves Father: Healthy Social History EtOH: none Tobacco: up to 1/2 pack for past 3 weeks Drugs: None Physical Exam Vital Signs Vital Signs Date Time Temp Pulse Resp B/P (MAP) Pulse Ox O2 Delivery O2 Flow Rate FiO2 12/18/17 13:36 98.2 88 14 121/65 (83) 99 Physical Exam GENERAL: This is a well-nourished, well-developed patient, in no apparent distress. SKIN: No rashes, ecchymoses or lesions. Cool and dry. HEAD: Atraumatic. Normocephalic. No temporal or scalp tenderness. EYES: Pupils equal round and reactive. Extraocular motions intact. No scleral icterus. No injection or drainage. ENT: Nose without bleeding, purulent drainage or septal hematoma. Throat without erythema, tonsillar hypertrophy or exudate. Uvula midline. Airway patent. NECK: Trachea midline. No JVD or lymphadenopathy. Supple, nontender, no meningeal signs. CARDIOVASCULAR: Regular rate and rhythm without murmurs, gallops, or rubs. RESPIRATORY: Clear to auscultation. Breath sounds equal bilaterally. No wheezes , rales, or rhonchi. GENITOURINARY: Normal external genitalia without lesions or erythema, dried blood noted at introitus. Vaginal vault with approximately 10cc fluid blood. No clots noted. Significant tenderness upon examination. GASTROINTESTINAL: Abdomen soft, nondistended. Mild tenderness in right lower quadrant, negative Barker's, negative Josselin's, negative Rovsing's. No hepato- splenomegaly, or palpable masses. No guarding. MUSCULOSKELETAL: Extremities without clubbing, cyanosis, or edema. No joint tenderness, effusion, or edema noted. No calf tenderness. Negative Homans sign bilaterally. NEUROLOGICAL: Awake and alert. Cranial nerves II through XII intact. Motor and sensory grossly within normal limits. Five out of 5 muscle strength in all muscle groups. Normal speech. Laboratory Laboratory Tests Test 12/18/17 15:11 Hemoglobin 12.4 Hematocrit 36.6 Result Diagram: 12/18/17 1511 Imaging Last Impressions Pelvis Ultrasound 12/18/17 0000 Signed Impressions: Service Date/Time: Monday, December 18, 2017 17:30 - CONCLUSION: Stable appearance with findings concerning for retained products of conception. MD Blanca Pierson VTE Risk Assessment Blanca VTE Risk Assessment: No/Low Risk (score <= 1) Assessment and Plan Assessment and Plan 22-year-old approximately 3.5 normal vaginal delivery presents with increased bloody discharge, mild abdominal tenderness. No external signs of systemic infection at this time. Problem List: (1) Retained products of conception, ICD Codes: O72.0 - Third-stage hemorrhage Status: Acute Plan: 22-year-old approximately 3.5 normal vaginal delivery presents with increased bloody discharge, mild abdominal tenderness. No external signs of systemic infection or symptomatic anemia at this time. US shows stable appearance with findings concerning for retained proximal of conception. Currently hemodynamically stable. -Consult AD COMPOSITOR surgeon -Monitor for increased bleeding and signs of anemia -Nothing by mouth after midnight for likely D&C tomorrow -Follow-up CBC, CMP, coagulation (2) Breast feeding status of mother ICD Codes: Z39.1 - Encounter for care and examination of lactating mother Plan: Patient currently breast pumping -Provide patient with breast pump (3) FEN Plan: Fluids: Tolerating by mouth Electrolytes: Monitor, replete as needed Nutrition: Nothing by mouth after midnight for likely D&C tomorrow Physician Certification 2 Midnight Certification Type: Admission for Inpatient Services Order for Inpatient Services The services are ordered in accordance with Medicare regulations or non- Medicare payer requirements, as applicable. In the case of services not specified as inpatient-only, they are appropriately provided as inpatient services in accordance with the 2-midnight benchmark. Estimated LOS (days): 2 2 days is the estimated time the patient will need to remain in the hospital, assuming treatment plan goals are met and no additional complications. Post-Hospital Plan: Cornelio Mcghee MD R1 Dec 18, 2017 19:03
[2017-12-18 20:45] LABS: AUTOMATED NEUTROPHIL # 5.7 TH/MM3 (1.8-7.7); BASOPHIL % 0.5 % (0.0-2.0); EOSINOPHIL # 0.3 TH/MM3 (0-0.4); EOSINOPHIL % 2.9 % (0.0-4.0); HEMATOCRIT 38.1 % (35.0-46.0); HEMOGLOBIN 12.7 GM/DL (11.6-15.3); LYMPH % 33.4 % (9.0-44.0); LYMPHOCYTE # 3.3 TH/MM3 (1.0-4.8); MEAN CELL VOLUME 87.7 FL (80.0-100.0); MEAN CORPUSCULAR HEMOGLOBIN 29.3 PG (27.0-34.0); MEAN CORPUSCULAR HGB CONC 33.4 % (32.0-36.0); MEAN PLATELET VOLUME 7.8 FL (7.0-11.0); MONO % 5.2 % (0.0-8.0); MONOCYTE # 0.5 TH/MM3 (0-0.9); PLATELET COUNT 342 TH/MM3 (150-450); RED BLOOD COUNT 4.34 MIL/MM3 (4.00-5.30); RED CELL DISTRIBUTION WIDTH 13.2 % (11.6-17.2); WHITE BLOOD COUNT 9.8 TH/MM3 (4.0-11.0)
[2017-12-18 20:58] LABS: AST (GOT) 19 U/L (15-37); BICARBONATE 27.2 MEQ/L (21.0-32.0); BLOOD UREA NITROGEN 14 MG/DL (7-18); CALCIUM 8.9 MG/DL (8.5-10.1); CHLORIDE 104 MEQ/L (98-107); GLUCOSE,RANDOM 149 MG/DL (74-106); SODIUM (NA) 139 MEQ/L (136-145)
[2017-12-18 21:06] LABS: PROTHROMBIN TIME - PATIENT 10.2 SEC (9.8-11.6)
[2017-12-18 21:27] LABS: ALT (GPT) 29 U/L (10-53)
[2017-12-18 21:28] LABS: CREATININE 0.83 MG/DL (0.50-1.00); GLOMERULAR FILTRATION RATE 85 ML/MIN (>89)
[2017-12-18 21:33] LABS: ALKALINE PHOSPHATASE 79 U/L (45-117); TOTAL BILIRUBIN ADULT 0.2 MG/DL (0.2-1.0); TOTAL PROTEIN 7.9 GM/DL (6.4-8.2)
[2017-12-19 00:07] VITALS: BP 115/57; PULSE 67; RESP 18; TEMP 97.9; O2SAT 100
[2017-12-19 03:48] VITALS: BP 100/57; PULSE 69; RESP 18; TEMP 98; O2SAT 98
[2017-12-19 07:20] VITALS: BP 99/66; PULSE 58; RESP 16; TEMP 97.9; O2SAT 98
--- NOTE | 2017-12-19 09:09 | HHI.HP ---
[facility] Service Family Medicine Primary Care Physician Albert Crowley , Serjio Hdez MD Admission Diagnosis Diagnoses: (1) Retained products of conception, Diagnosis: Principal (2) Breast feeding status of mother Diagnosis: Principal (3) FEN Diagnosis: Principal International Travel<30 Days: No Contact w/Intl Traveler<30days: No Known Affected Area: No History of Present Illness Ms Escobedo is a 22 year old coming in today complaining of vaginal bleeding. She states she had a vaginal delivery approximately 3.5 weeks ago. Since then she's had improving intermittent bleeding with occasional clots. She has been changing pads approximately once every 4 hours, typically not fully saturated. A couple days ago she had a "large gush of blood" with significant amount blood which came out for approximately 5 minutes. Last night she complains of intermittent abdominal cramping which has continued until today. She reports a mild left-sided frontal headache which has been present since delivery. No changes in vision, lightheadedness, dizziness. No dysuria, increasing frequency, change in color/smell, hematuria. She denies nausea, vomiting, fever, chills. No chest pain, shortness of breath, palpitations, change in bowel habits. She also notes she feels warm right now, however she notes she typically feels like this when she has not breast pumped in a while. No other complaints at this time. She feels well this amd and states no signs of infection. She is up walking well and has no other complaints this am. Review of Systems Constitutional: COMPLAINS OF: Diaphoretic episodes, DENIES: Fatigue, Fever, Change in appetite Endocrine: COMPLAINS OF: Abnorml menstrual pattern Cardiovascular: DENIES: Chest pain, Dyspnea on Exertion, Lower Extremity Edema Gastrointestinal: COMPLAINS OF: Abdominal pain, DENIES: Black stools, Bloody stools, Difficulty Swallowing, Anorexia Genitourinary: COMPLAINS OF: Abnormal vaginal bleeding, Vaginal discharge Musculoskeletal: DENIES: Joint pain Integumentary: DENIES: Abnormal pigmentation Neurologic: DENIES: Abnormal gait Other Constitutional: DENIES: Fever, Chills, Change in appetite Endocrine: DENIES: Heat/cold intolerance, Polydipsia, Polyuria Eyes: DENIES: Blurred vision, Diplopia, Eye inflammation, Eye pain, Vision loss , Photosensitivity, Double Vision Ears, nose, mouth, throat: DENIES: Vertigo, Running Nose, Epistaxis Respiratory: DENIES: Cough, Sputum production, Shortness of breath Cardiovascular: DENIES: Chest pain, Palpitations, Syncope Gastrointestinal: DENIES: Abdominal pain, Black stools, Bloody stools, Constipation, Diarrhea, Nausea, Vomiting Genitourinary: COMPLAINS OF: Abnormal vaginal bleeding, DENIES: Urinary frequency, Hematuria, Dysuria Musculoskeletal: DENIES: Joint pain, Muscle aches, Stiffness Integumentary: DENIES: Abnormal pigmentation, Rash Hematologic/lymphatic: DENIES: Bruising, Lymphadenopathy Immunologic/allergic: DENIES: Eczema, Urticaria Neurologic: COMPLAINS OF: Headache, DENIES: Abnormal gait, Localized weakness Psychiatric: DENIES: Anxiety, Confusion Past Family Social History Past Medical History vaginal Past Surgical History Denies Allergies: Coded Allergies: latex (Verified Allergy, Severe, Anaphylaxis, 12/18/17) codeine (Verified Adverse Reaction, Severe, Nausea/Vomiting, 12/18/17) Family History Mother: Thyroid issues, graves Father: Healthy Social History EtOH: none Tobacco: up to 1/2 pack for past 3 weeks Drugs: None Physical Exam Vital Signs Vital Signs Date Time Temp Pulse Resp B/P (MAP) Pulse Ox O2 Delivery O2 Flow Rate FiO2 12/19/17 07:20 97.9 58 16 99/66 (77) 98 12/19/17 03:48 98.0 69 18 100/57 (71) 98 12/19/17 00:07 97.9 67 18 115/57 (76) 100 12/18/17 20:37 12/18/17 18:30 74 16 113/69 (84) 100 Room Air 12/18/17 13:36 98.2 88 14 121/65 (83) 99 Physical Exam GENERAL: This is a well-nourished, well-developed patient, in no apparent distress. SKIN: No rashes, ecchymoses or lesions. Cool and dry. HEAD: Atraumatic. Normocephalic. No temporal or scalp tenderness. EYES: Pupils equal round and reactive. Extraocular motions intact. No scleral icterus. No injection or drainage. ENT: Nose without bleeding, purulent drainage or septal hematoma. Throat without erythema, tonsillar hypertrophy or exudate. Uvula midline. Airway patent. NECK: Trachea midline. No JVD or lymphadenopathy. Supple, nontender, no meningeal signs. CARDIOVASCULAR: Regular rate and rhythm without murmurs, gallops, or rubs. RESPIRATORY: Clear to auscultation. Breath sounds equal bilaterally. No wheezes , rales, or rhonchi. GENITOURINARY: Normal external genitalia without lesions or erythema, dried blood noted at introitus. Vaginal vault with approximately 10cc fluid blood. No clots noted. Significant tenderness upon examination. OPTICAL INSTRUMENT ASSEMBLY SUPERVISOR exam done by resident on admission GASTROINTESTINAL: Abdomen soft, nondistended. Mild tenderness in right lower quadrant, negative Barker's, negative Josselin's, negative Rovsing's. No hepato- splenomegaly, or palpable masses. No guarding. MUSCULOSKELETAL: Extremities without clubbing, cyanosis, or edema. No joint tenderness, effusion, or edema noted. No calf tenderness. Negative Homans sign bilaterally. NEUROLOGICAL: Awake and alert. Cranial nerves II through XII intact. Motor and sensory grossly within normal limits. Five out of 5 muscle strength in all muscle groups. Normal speech. Laboratory Laboratory Tests Test 12/18/17 15:11 12/18/17 20:17 Hemoglobin 12.4 12.7 Hematocrit 36.6 38.1 White Blood Count 9.8 Red Blood Count 4.34 Mean Corpuscular Volume 87.7 Mean Corpuscular Hemoglobin 29.3 Mean Corpuscular Hemoglobin Concent 33.4 Red Cell Distribution Width 13.2 Platelet Count 342 Mean Platelet Volume 7.8 Neutrophils (%) (Auto) 58.0 Lymphocytes (%) (Auto) 33.4 Monocytes (%) (Auto) 5.2 Eosinophils (%) (Auto) 2.9 Basophils (%) (Auto) 0.5 Neutrophils # (Auto) 5.7 Lymphocytes # (Auto) 3.3 Monocytes # (Auto) 0.5 Eosinophils # (Auto) 0.3 Basophils # (Auto) 0.0 CBC Comment DIFF FINAL Differential Comment Prothrombin Time 10.2 Prothromb Time International Ratio 1.0 Activated Partial Thromboplast Time 26.9 Blood Urea Nitrogen 14 Creatinine 0.83 Random Glucose 149 Total Protein 7.9 Albumin 4.0 Calcium Level 8.9 Alkaline Phosphatase 79 Aspartate Amino Transf (AST/SGOT) 19 Alanine Aminotransferase (ALT/SGPT) 29 Total Bilirubin 0.2 Sodium Level 139 Potassium Level 3.5 Chloride Level 104 Carbon Dioxide Level 27.2 Anion Gap 8 Estimat Glomerular Filtration Rate 85 Result Diagram: 12/18/17201612/18/172016 Imaging Last Impressions Pelvis Ultrasound 12/18/17 0000 Signed Impressions: Service Date/Time: Monday, December 18, 2017 17:30 - CONCLUSION: Stable appearance with findings concerning for retained products of conception. MD Blanca Pierson VTE Risk Assessment Blanca VTE Risk Assessment: No/Low Risk (score <= 1) Caprini Risk Assessment Model Point Value = 1 Point Value = 2 Point Value = 3 Point Value = 5 Age 41-60 Minor surgery BMI > 25 kg/m2 Swollen legs Varicose veins or History of unexplained or recurrent spontaneous Oral contraceptives or hormone replacement Sepsis (< 1 month) Serious lung disease, including pneumonia (< 1 month) Abnormal pulmonary function Acute myocardial infarction Congestive heart failure (< 1 month) History of inflammatory bowel disease Medical patient at bed rest Age 61-74 Arthroscopic surgery Major open surgery (> 45 min) Laparoscopic surgery (> 45 min) Malignancy Confined to bed (> 72 hours) Immobilizing plaster cast Central venous access Age >= 75 History of VTE Family history of VTE Factor V Leiden Prothrombin [id number] Lupus anticoagulant Anticardiolipin antibodies Elevated serum homocysteine Heparin-induced thrombocytopenia Other congenital or acquired thrombophilia Stroke (< 1 month) Elective arthroplasty Hip, pelvis, or leg fracture Acute spinal cord injury (< 1 month) Prophylaxis Regimen Total Risk Factor Score Risk Level Prophylaxis Regimen 0-1 Low Early ambulation 2 Moderate Order ONE of the following: *Sequential Compression Device (SCD) *Heparin 5000 units SQ BID 3-4 Higher Order ONE of the following medications: *Heparin 5000 units SQ TID *Enoxaparin/Lovenox 40 mg SQ daily (WT < 150 kg, CrCl > 30 mL/min) *Enoxaparin/Lovenox 30 mg SQ daily (WT < 150 kg, CrCl > 10-29 mL/min) *Enoxaparin/Lovenox 30 mg SQ BID (WT < 150 kg, CrCl > 30 mL/min) AND/OR *Sequential Compression Device (SCD) 5 or more Highest Order ONE of the following medications: *Heparin 5000 units SQ TID (Preferred with Epidurals) *Enoxaparin/Lovenox 40 mg SQ daily (WT < 150 kg, CrCl > 30 mL/min) *Enoxaparin/Lovenox 30 mg SQ daily (WT < 150 kg, CrCl > 10-29 mL/min) *Enoxaparin/Lovenox 30 mg SQ BID (WT < 150 kg, CrCl > 30 mL/min) AND *Sequential Compression Device (SCD) Assessment and Plan Assessment and Plan 22-year-old approximately 3.5 normal vaginal delivery presents with increased bloody discharge, mild abdominal tenderness. No external signs of systemic infection at this time. Problem List: (1) Retained products of conception, ICD Codes: O72.0 - Third-stage hemorrhage Status: Acute Plan: 22-year-old approximately 3.5 normal vaginal delivery presents with increased bloody discharge, mild abdominal tenderness. No external signs of systemic infection or symptomatic anemia at this time. US shows stable appearance with findings concerning for retained proximal of conception. Currently hemodynamically stable. -Consulted OPTICAL INSTRUMENT ASSEMBLY SUPERVISOR surgeon -Monitor for increased bleeding and signs of anemia -Nothing by mouth after midnight for likely D&C today -Follow-up CBC, CMP, coagulation (2) Breast feeding status of mother ICD Codes: Z39.1 - Encounter for care and examination of lactating mother Plan: Patient currently breast pumping -Provide patient with breast pump (3) FEN Plan: Fluids: Tolerating by mouth Electrolytes: Monitor, replete as needed Nutrition: Nothing by mouth after midnight for likely D&C today Marcelle Garcia MD Dec 19, 2017 09:09
[2017-12-19 11:15] VITALS: BP 112/69; PULSE 57; RESP 16; TEMP 98; O2SAT 99
[2017-12-19] MEDS ORDERED: METHYLERGONOVINE MALEATE 0.2 MG/ML VIAL ONE (11:53)
[2017-12-19] MEDS ORDERED: ceFAZolin INJ 1,000 MG VIAL IV ONE (12:00)
[2017-12-19] MEDS ORDERED: KETOROLAC TROMETHAMINE 30 MG/ML (IVP) VIAL IV PUSH ONE (12:00)
[2017-12-19] MEDS ORDERED: PROPOFOL 200 MG/20 ML AMP IV ONE (12:00)
[2017-12-19] MEDS ORDERED: ePHEDrine/NS 25 MG/5 ML SYRINGE IV ONE (12:00)
[2017-12-19] MEDS ORDERED: DEXAMETHASONE SOD PHOS 4 MG/ML VIAL IV ONE (12:00)
[2017-12-19] MEDS ORDERED: LIDOCAINE HCL 1% PF 5 ML SYRINGE OTHER ONE (12:00)
[2017-12-19] MEDS ORDERED: ONDANSETRON HCL 4 MG/2 ML VIAL IV ONE (12:00)
[2017-12-19] MEDS ORDERED: CHLORHEXIDINE GLUCONATE 2 % 1 PACK (2 CLOTHS) TOPICAL PRN (13:00)
[2017-12-19] MEDS ORDERED: POVIDONE IODINE 5% (ANTISEPSIS KIT) 4 APPLICATIONS EACH NARE PRN (13:00)
[2017-12-19] MEDS ORDERED: METOPROLOL TARTRATE 25 MG TAB PO PRN (13:00)
[2017-12-19] MEDS ORDERED: SODIUM CHLORID 0.9% 500 ML IV PRN (13:00)
[2017-12-19] MEDS ORDERED: LACTATED RINGER'S 1000 ML IV PRN (13:00)
[2017-12-19] MEDS ORDERED: ceFAZolin 2 GM PREMIX 50 ML IV SCH (13:15)
[2017-12-19] MEDS ORDERED: DO NOT ADM ANY ANTICOAGULANT DRUGS PRN (13:30)
[2017-12-19] MEDS ORDERED: MIDAZOLAM HCL 2 MG/2 ML VIAL ONE (13:34)
[2017-12-19] MEDS ORDERED: *morphine SULFATE 10 MG/ML PERIprocedure ONLY ONE (13:37)
[2017-12-19] MEDS ORDERED: *morphine SULFATE 4 MG/ML PERIprocedure ONLY ONE (14:25)
[2017-12-19] MEDS ORDERED: ONDANSETRON HCL 4 MG/2 ML VIAL ONE (14:59)
--- NOTE | 2017-12-19 15:08 | HHI.DCPOC ---
Discharge Care Plan Diagnosis: (1) Retained products of conception, Goals to Promote Your Health * To prevent worsening of your condition and complications * To maintain your health at the optimal level Directions to Meet Your Goals Take your medications as prescribed Follow your dietary instruction Follow activity as directed Keep your appointments as scheduled Take your immunizations and boosters as scheduled If your symptoms worsen call your PCP, if no PCP go to Urgent Care Center or Emergency Room Smoking is Dangerous to Your Health. Avoid second hand smoke Call the 24-hour hour crisis hotline for domestic abuse at Albert Hdez MD, R3 Dec 19, 2017 15:08
[2017-12-19 15:30] VITALS: BP 113/70; PULSE 69; RESP 18; TEMP 97.8; O2SAT 100
--- NOTE | 2017-12-19 15:33 | MB ---
cc: JOSE R LOMAX DATE OF CONSULTATION: 12/19/2017 HISTORY OF PRESENT ILLNESS The patient is a 22-year-old 1, para 1, who presents complaining of heavy vaginal bleeding. The patient states that she had a vaginal delivery about three and a half weeks ago and she delivered with the family practice physicians. She states that the bleeding comes and goes and today she had bad cramping and heavy amount of bleeding and clots that lasted for about 5 minutes. She has also had intermittent cramping. She denies dizziness, lightheadedness, shortness of breath or abdominal pain. The patient had been seen last week in the ER as suspected products of conception were noted. She was given Cytotec at that time but the bleeding has persisted despite that therapy and now the patient would like operative intervention. PAST MEDICAL HISTORY Her past medical history is negative. PAST SURGICAL HISTORY Her past surgical history is negative. OBSTETRICAL HISTORY One with vaginal delivery 3-4 weeks ago. GYNECOLOGIC HISTORY No STDs or abnormal Pap smears. 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 FAMILY HISTORY Her mother has Graves' disease. PHYSICAL EXAMINATION VITAL SIGNS: She is afebrile. Her vitals are all stable. HEART: Regular rate and rhythm. LUNGS: Clear to auscultation bilaterally. ABDOMEN: Soft, nontender, nondistended. LOWER EXTREMITIES: Nontender, nonedematous. IMAGING STUDIES On ultrasound the patient has thickened endometrial lining up [address] consistent with retained products of conception and her hemoglobin has been stable at 12. IMPRESSION Retained products of conception status post vaginal delivery. PLAN D&C with suction. Risks, benefits, alternatives have been reviewed and the patient does desire to proceed. Jose R Lomax MD TEG/TLL /12:41 PM /1:26 PM
[2017-12-19] MEDS ORDERED: ONDANSETRON HCL 4 MG/2 ML VIAL IV PUSH ONE (16:30)
--- NOTE | 2017-12-24 12:33 | MP ---
cc: Jose R Chino MD DATE OF OPERATION: 12/19/2017 DATE OF SURGERY: 12/19/2017 PREOPERATIVE DIAGNOSIS: Retained products of conception. POSTOPERATIVE DIAGNOSIS: Retained products of conception. PROCEDURE: D and C with suction. SURGEON: Jose R Chino MD ANESTHESIA: General. ESTIMATED BLOOD LOSS: Minimal. DRAINS: None. SPECIMEN: Products of conception. COUNTS: Correct x 2. DISPOSITION: Stable in the PACU. INDICATION: The patient is a 22-year-old 1, para 1 who is approximately 3-1/2 weeks with a history of irregular bleeding, sometimes heavy, sometimes light after delivery. Ultrasound suggests retained products of conception and thus, the patient presents for operative intervention after failing Cytotec. The patient was delivered by the [facility]. PROCEDURE: She is taken to the operating room, prepped and draped in normal sterile fashion for surgery. Her legs are placed in candy-cane stirrups. A speculum is inserted into the vagina. The anterior lip of the cervix is grasped using a single-tooth tenaculum. The cervix is then serially dilated to accommodate the #8 suction catheter. This is inserted and products of conception are revealed. Once this is done the uterus is gently curetted using medium sharp curet. No additional products of conception were noted. At this point it was felt the procedure is complete. All instruments are removed from the patient's vagina and she is awakened and extubated and taken to the recovery room in stable condition. Jose R Chino MD TEG/TL/ , 10:32 AM , 11:36 AM
== END 2017-12-19 16:30 | disposition home or self-care (01) ==
LOC: NEPD 13:27 → INTOOBSV 19:34 → NEDA 19:34 → NEPHCDU 20:50
PROVIDERS: ADMIT Family Medicine; ATTEND Family Medicine
DX: O72.2 Delayed and secondary postpartum hemorrhage (principal); R10.30 Lower abdominal pain, unspecified; R51 Headache; Z88.5 Allergy status to narcotic agent; Z91.040 Latex allergy status
CPT/HCPCS: 00940; 59160; 76856; 80053; 85014; 85018; 85025; 85610; 85730; 86850; 86900; 86901; 88305; 99285; G0378; J0690; J1100; J1885; J2250; J2270; J2405; J3010; J2210

== ENCOUNTER 2017-12-22 22:34 | Emergency (ER) | payer MEDICAID ==
[~2017-12-22] VITALS: Ht 162.6 cm; Wt 54.0 kg
[~2017-12-22 22:34] MED LIST changes: -IBUP1TAB7 PO; -PREN29TA PO
[2017-12-22 22:36] VITALS: BP 107/67; PULSE 116; RESP 16; TEMP 99.3; O2SAT 100
[2017-12-22 23:10] VITALS: O2SAT 100
[2017-12-22] MEDS ORDERED: SODIUM CHLOR 0.9% 1000 ML INJ 1,000 ML IV ONE (23:15)
--- NOTE | 2017-12-22 23:23 | PD ---
HPI Chief Complaint: Bleeding Time Seen by Provider: 23:02 Travel History International Travel<30 days: No Contact w/Intl Traveler<30days: No Traveled to known affect area: No History of Present Illness HPI The patient is a 22 year old female who presents to the [facility] emergency department with a history of being one-month status post vaginal delivery complicated by a labial laceration status post repair. The patient reports that after delivery the patient developed vaginal bleeding that was heavy and was evaluated in the emergency department for this on 2 occasions. On the first occasion the patient had an ultrasound that revealed possible retained products of conception. The patient's case was discussed with the OB hospitalist who recommended Cytotec. Cytotec was administered and the patient was discharged home. The patient then developed increased vaginal bleeding and was admitted to the hospital on December 18. The patient underwent D&C by Dr. Chino. The patient's primary care physician is Dr. Albert Hdez. The patient presents at this time related to fever that began in the morning yesterday on December 22. She reports that her temperature has been as high as 101.2. The patient reports that she has been taking Motrin 800 mg. She did take her last dose at 8 PM. The patient reports having chills. She denies having any other symptoms including cough, congestion, sore throat, dysuria, urinary frequency, urinary urgency, lower extremity edema, calf pain, or erythema. Otherwise on review of systems she denies having any odor to her vaginal blood. She reports that her vaginal bleeding has decreased over time except for a gush of blood with two quarter sized blood clots at 8 AM this morning. She reports that her abdominal pain and cramping has been decreasing with time. She denies having any vomiting or diarrhea. She denies having any neurologic symptoms. [facility] Past Medical History Narrative Medical The patient's past medical history is reportedly none. Diminished Hearing: No Endocrine: No Immunizations Current: No ?: Not Past Surgical History Narrative Surgical The patient's past surgical history is significant for dilation and curettage on October 18, 2018. Social History Alcohol Use: No Tobacco Use: No Substance Use: No Allergies-Medications (Allergen,Severity, Reaction): Coded Allergies: latex (Verified Allergy, Severe, Anaphylaxis, 12/22/17) codeine (Verified Adverse Reaction, Severe, Nausea/Vomiting, 12/22/17) Reported Meds & Prescriptions Reported Meds & Active Scripts Active Review of Systems Except as stated in HPI: all other systems reviewed are Neg General / Constitutional: Positive: Fever, Chills Eyes: No: Visual changes HENT: No: Headaches, Sore Throat, Congestion Cardiovascular: No: Chest Pain or Discomfort Respiratory: No: Cough, Shortness of Breath Gastrointestinal: Positive: Abdominal Pain, No: Nausea, Vomiting, Diarrhea, Changes in Bowel Habits, Indigestion, Loss of Appetite Genitourinary: Positive: Vaginal Bleeding, No: Urgency, Frequency, Dysuria, Flank Pain Musculoskeletal: No: Pain Skin: No Rash Neurologic: No: Weakness, Focal Abnormalities, Change in Mentation, Slurred Speech, Sensory Disturbance Psychiatric: No: Depression Endocrine: No: Polydipsia Hematologic/Lymphatic: No: Easy Bruising Physical Exam Narrative General: The patient is a well-developed well-nourished female in no acute distress. Head and Neck exam: Head is normocephalic atraumatic. Eyes: EOMI, pupils are equal round and reactive to light. Nose: Midline septum with pink mucous membranes Mouth: Dentition unremarkable. Moist mucus membranes. Posterior oropharynx is not erythematous. No tonsillar hypertrophy. Uvula midline. Airway patent. Neck: No palpable lymphadenopathy. No nuchal rigidity. No thyromegaly. Cardiovascular: Regular rate and rhythm without murmurs, gallops, or rubs. No pulse deficit to the extremities on simultaneous auscultation and palpation of her radial artery. Lungs: Clear to auscultation bilaterally. No wheezes, rhonchi, or rales. Abdomen: Soft, without tenderness to palpation in all 4 quadrants of the abdomen. No guarding, rebound, or rigidity. Normal bowel sounds are audible. No tenderness on palpation of McBurney's point. Negative Barker sign. Extremities: No clubbing, cyanosis, or edema. 2+ pulses in all 4 extremities. No calf tenderness on palpation. Negative Homans sign. No palpable cords. Back: No spinous process tenderness to palpation. No costovertebral angle tenderness to palpation. Neurologic Exam: Grossly nonfocal. Skin Exam: No rash noted. Intact skin that is warm and dry. Gynecologic exam: The patient was placed in the dorsal lithotomy position. Her external genitalia were examined and the patient has a laceration that is been repaired. There is no significant swelling. She had no evidence of rash or lesions. The speculum was placed into her vagina and the cervix was identified. She has a mild amount of bloody discharge noted. No cervical friability. On Bimanual exam: she has no cervical motion tenderness. No adnexal tenderness or prominence noted on palpation. No uterine tenderness or enlargement noted on palpation. The patient reports that her pelvic pain has actually decreased since her D&C. Data Data Last Documented VS Vital Signs Date Time Temp Pulse Resp B/P (MAP) Pulse Ox O2 Delivery O2 Flow Rate FiO2 12/22/17 22:36 99.3 116 16 107/67 (80) 100 Room Air Orders Orders Complete Blood Count With Diff (12/22/17 23:13) Comprehensive Metabolic Panel (12/22/17 23:13) Prothrombin Time / Inr (Pt) (12/22/17 23:13) Act Partial Throm Time (Ptt) (12/22/17 23:13) Blood Culture (12/22/17 23:13) C-Reactive Protein (Crp) (12/22/17 23:13) Urinalysis - C+S If Indicated (12/22/17 23:13) Magnesium (Mg) (12/22/17 23:13) Chest, Single Ap (12/22/17 23:13) Iv Access Insert/Monitor (12/22/17 23:13) Ecg Monitoring (12/22/17 23:13) Oximetry (12/22/17 23:13) Ed Urine Pregnancytest Poc (12/22/17 23:13) Lactic Acid Sepsis Protocol (12/22/17 23:13) Sodium Chlor 0.9% 1000 Ml Inj (Ns 1000 M (12/22/17 23:15) Beta Hcg (Quant/Titer) (12/23/17 00:29) Type And Screen (12/23/17 00:29) Ed Discharge Order (12/23/17 02:01) Labs Laboratory Tests Test 12/22/17 23:30 12/22/17 23:35 White Blood Count 8.1 TH/MM3 Red Blood Count 3.65 MIL/MM3 Hemoglobin 11.1 GM/DL Hematocrit 31.5 % Mean Corpuscular Volume 86.1 FL Mean Corpuscular Hemoglobin 30.4 PG Mean Corpuscular Hemoglobin Concent 35.3 % Red Cell Distribution Width 12.9 % Platelet Count 226 TH/MM3 Mean Platelet Volume 7.9 FL Neutrophils (%) (Auto) 77.1 % Lymphocytes (%) (Auto) 16.4 % Monocytes (%) (Auto) 5.9 % Eosinophils (%) (Auto) 0.2 % Basophils (%) (Auto) 0.4 % Neutrophils # (Auto) 6.2 TH/MM3 Lymphocytes # (Auto) 1.3 TH/MM3 Monocytes # (Auto) 0.5 TH/MM3 Eosinophils # (Auto) 0.0 TH/MM3 Basophils # (Auto) 0.0 TH/MM3 CBC Comment DIFF FINAL Differential Comment Prothrombin Time 10.4 SEC Prothromb Time International Ratio 1.0 RATIO Activated Partial Thromboplast Time 25.4 SEC Urine Color YELLOW Urine Turbidity CLEAR Urine pH 6.0 Urine Specific [place] 1.023 Urine Protein TRACE mg/dL Urine Glucose (UA) NEG mg/dL Urine Ketones NEG mg/dL Urine Occult Blood MOD Urine Nitrite NEG Urine Bilirubin NEG Urine Urobilinogen LESS THAN 2.0 MG/DL Urine Leukocyte Esterase TRACE Urine RBC 74 /hpf Urine WBC 2 /hpf Urine Squamous Epithelial Cells 1 /hpf Urine Transitional Epithelial Cells <1 /hpf Urine Mucus FEW /lpf Microscopic Urinalysis Comment CULT NOT INDICATED Blood Urea Nitrogen 14 MG/DL Creatinine 0.90 MG/DL Random Glucose 92 MG/DL Total Protein 7.6 GM/DL Albumin 3.9 GM/DL Calcium Level 8.7 MG/DL Magnesium Level 1.8 MG/DL Alkaline Phosphatase 72 U/L Aspartate Amino Transf (AST/SGOT) 16 U/L Alanine Aminotransferase (ALT/SGPT) 24 U/L Total Bilirubin 0.3 MG/DL Sodium Level 139 MEQ/L Potassium Level 4.0 MEQ/L Chloride Level 106 MEQ/L Carbon Dioxide Level 27.7 MEQ/L Anion Gap 5 MEQ/L Estimat Glomerular Filtration Rate 78 ML/MIN C-Reactive Protein 3.80 MG/DL Human Chorionic Gonadotropin, Quant 2 MIU/ML Lactic Acid Level 1.3 mmol/L MDM Medical Decision Making Medical Screen Exam Complete: Yes Emergency Medical Condition: Yes Medical Record Reviewed: Yes Differential Diagnosis Endometritis, versus urinary tract infection, versus viral illness Narrative Course During the course of the patient's emergency department visit, the patient's history, examination, and differential diagnosis were reviewed with the patient. The patient was placed on a forensic dna analyst with oximetry and frequent blood pressure monitoring. The patient had IV access obtained and blood work sent for analysis. The patient was initially provided Normal saline 1 L IV fluid bolus. The patient's laboratory studies were reviewed and remarkable for a white count of 8.1, hemoglobin 11.1, platelets 226 with 77.1 neutrophils, CMP is remarkable for a GFR of 78, C-reactive protein is 3.8, quantitative beta-hCG is 2, lactic acid 1.3, PT 10.4, PTT 25.4, urinalysis shows moderate occult blood trace leukocyte esterase 74 RBCs 2 WBCs, culture not indicated. Radiology studies were reviewed and remarkable for a chest x-ray that shows no acute cardiopulmonary disease. The patient's case was discussed with the family practice resident on-call as the patient is followed by the family practice residency. The patient's history , examination findings, laboratory studies and imaging were discussed with him. The patient has no source of fever and no fever noted here. He was agreeable with the plan to proceed with discharge. The patient was instructed regarding the importance of close follow-up with the family practice residency. She was instructed to call in the morning for a follow-up appointment. The patient is resting comfortably and feels better, is alert and in no distress. The patient's results and examination findings were discussed with the patient. The repeat examination is unremarkable and benign. The history, exam, diagnostic testing, and current condition do not suggest any significant pathology to warrant further testing, continued ED treatment, admission, or surgical evaluation at this point. The vital signs have been stable. The patient does not have uncontrollable pain, intractable vomiting, or other significant symptoms. The patient's condition is stable and appropriate for discharge. The patient will pursue further outpatient evaluation with a primary care physician or other designated or consulting physician as indicated in the discharge instructions. The patient expressed understanding and was agreeable with this plan. Physician Communication Physician Communication The patient's case including history, pertinent physical examination findings, and laboratory studies were discussed with Dr. Mcarthur. It was agreed that the patient would be discharged with close follow-up with Dr. Hdez in the family practice clinic. Diagnosis Primary Impression: Fever Qualified Codes: R50.9 - Fever, unspecified Additional Impression: S/P dilation and curettage Referrals: Jose R Chino MD 1 day Albert Hdez MD, R3 1 day Patient Instructions: Fever in Adults (ED), General Instructions Med/Other Pt SpecificInfo: No Change to Meds Disposition: 01 DISCHARGE HOME Condition: Stable Alina Evans MD Dec 22, 2017 23:23
--- NOTE | 2017-12-22 23:41 | RADRPT ---
EXAM DATE/TIME: 12/22/2017 23:26 [place] COMPARISON: No previous studies available for comparison. INDICATIONS : Short of breath. MEDICAL HISTORY : None. SURGICAL HISTORY : None. ENCOUNTER: Initial ACUITY: 1 day PAIN SCORE: 0/10 LOCATION: Bilateral chest FINDINGS: A single view of the chest demonstrates the lungs to be symmetrically aerated without evidence of mas s, infiltrate or effusion. The cardiomediastinal contours are unremarkable. Osseous structures are intact. CONCLUSION: 1. No acute cardiopulmonary disease. Elvin Ram MD on December 22, 2017 at 23:40 Board Certified Radiologist. This report was verified electronically.
[2017-12-22 23:58] LABS: AUTOMATED NEUTROPHIL # 6.2 TH/MM3 (1.8-7.7); BASOPHIL % 0.4 % (0.0-2.0); EOSINOPHIL % 0.2 % (0.0-4.0); HEMATOCRIT 31.5 % (35.0-46.0); HEMOGLOBIN 11.1 GM/DL (11.6-15.3); LYMPH % 16.4 % (9.0-44.0); LYMPHOCYTE # 1.3 TH/MM3 (1.0-4.8); MEAN CELL VOLUME 86.1 FL (80.0-100.0); MEAN CORPUSCULAR HEMOGLOBIN 30.4 PG (27.0-34.0); MEAN CORPUSCULAR HGB CONC 35.3 % (32.0-36.0); MEAN PLATELET VOLUME 7.9 FL (7.0-11.0); MONO % 5.9 % (0.0-8.0); MONOCYTE # 0.5 TH/MM3 (0-0.9); NEUT % 77.1 % (16.0-70.0); PLATELET COUNT 226 TH/MM3 (150-450); RED BLOOD COUNT 3.65 MIL/MM3 (4.00-5.30); RED CELL DISTRIBUTION WIDTH 12.9 % (11.6-17.2); WHITE BLOOD COUNT 8.1 TH/MM3 (4.0-11.0)
[2017-12-22 23:59] LABS: BILIRUBIN, URINE NEG (NEG); BLOOD, URINE MOD (NEG); GLUCOSE,URINE NEG (NEG); KETONE, URINE NEG (NEG); MUCUS URINE FEW /lpf (OCC); NITRITE,URINE NEG (NEG); SQUAMOUS EPITHELIAL CELL URINE 1 /hpf (0-5); TRANSITIONAL EPI CELLS, URINE <1 /hpf; URINE COLOR YELLOW (YELLW/STRAW); URINE LEUKOCYTE ESTERASE TRACE (NEG)
[2017-12-23 00:02] LABS: PROTHROMBIN TIME - PATIENT 10.4 SEC (9.8-11.6)
[2017-12-23 00:06] LABS: ALBUMIN 3.9 GM/DL (3.4-5.0); ALT (GPT) 24 U/L (10-53); AST (GOT) 16 U/L (15-37); BICARBONATE 27.7 MEQ/L (21.0-32.0); BLOOD UREA NITROGEN 14 MG/DL (7-18); CALCIUM 8.7 MG/DL (8.5-10.1); CHLORIDE 106 MEQ/L (98-107); GLOMERULAR FILTRATION RATE 78 ML/MIN (>89); GLUCOSE,RANDOM 92 MG/DL (74-106); MAGNESIUM 1.8 MG/DL (1.5-2.5); SODIUM (NA) 139 MEQ/L (136-145)
[2017-12-23 00:09] LABS: ALKALINE PHOSPHATASE 72 U/L (45-117); TOTAL BILIRUBIN ADULT 0.3 MG/DL (0.2-1.0); TOTAL PROTEIN 7.6 GM/DL (6.4-8.2)
[2017-12-23 02:26] VITALS: BP 100/59
== END 2017-12-23 02:28 | disposition home or self-care (01) ==
LOC: NEPE 22:34
DX: O90.89 Other complications of the puerperium, not elsewhere classified (principal); R50.9 Fever, unspecified; N93.9 Abnormal uterine and vaginal bleeding, unspecified; Z98.890 Other specified postprocedural states
CPT/HCPCS: 71045; 80053; 81001; 83605; 83735; 84702; 84703; 85025; 85610; 85730; 86140; 87040; 96360; 99284; J7030